=== PATIENT | female | born 1980 | race Two or more races ===

== ENCOUNTER 2020-09-20 11:40 | Outpatient (REF) | payer OTHER, SELFPAY | END 2020-09-20 11:41 | disposition home or self-care (01) | LOC: HO.LAB 11:40 | PROVIDERS: Visit Provider Internal Medicine | DX: Z20.822 Contact with and (suspected) exposure to COVID-19 (principal) | CPT/HCPCS: 36415; C9803; U0003; U0005 ==

== ENCOUNTER 2021-01-16 14:34 | Emergency (ER) | payer OTHER, SELFPAY ==
[2021-01-16 14:38] VITALS: BP 146/71; PULSE 96; RESP 18; TEMP 36.4; O2SAT 97; BMI 36.6
[2021-01-16 16:32] LABS: MANUAL DIFF FLAG NO
[2021-01-16 16:43] LABS: Basophils Percent Auto 0.5 % (0-2); Eosinophils Absolute Auto 0.3 X10*3/uL (0.0-0.4); Eosinophils Percent Auto 3.8 % (0-4); Hematocrit 45.2 % (37-47); Hemoglobin 14.9 g/dl (12.0-16.0); Imm Gran Abs Auto 0.04 X10*3/uL (0.00-0.03); Imm Gran Pct Auto 0.5 % (0.0-0.4); Lymphocytes Absolute Auto 2.7 X10*3/uL (1.2-4.9); Lymphocytes Percent Auto 32.6 % (20-40); Mean Corpuscular Hemoglobin 29.2 pg (27.0-33.0); Mean Corpuscular Volume 88.6 fL (80-98); Mean Platelet Volume 11.1 fL (9.4-12.3); Monocytes Absolute Auto 0.8 X10*3/uL (0.1-1.2); Monocytes Percent Auto 9.6 % (2-11); Neutrophils Absolute Auto 4.4 X10*3/uL (2.0-8.3); Platelet Count 273 X10*3/uL (160-400); Red Cell Distribution Width 13.7 % (11.0-16.0); White Blood Count 8.4 X10*3/uL (4.8-10.8)
--- NOTE | 2021-01-16 16:57 | ED_ITS ---
HPI - Nausea/Vomiting/Diarrhea General Chief complaint: Nausea/Vomiting/Diarrhea Stated complaint: DIARRHEA Time Seen by Provider: 01/16/21 16:57 Source: patient Mode of arrival: ambulatory Limitations: no limitations History of Present Illness HPI Narrative: patient been having diarrhea for last 2 days 4- 5 times today after having [place] food no fever no chills no blood in the stool no nausea or vomiting no other family member sick patient has not taken any medication at home Related Data Previous Rx's Medication Instructions Recorded loperamide [Imodium A-D] 2 mg PO Q6H PRN #7 tab 01/16/21 Allergies Allergy/AdvReac Type Severity Reaction Status Date / Time No Known Allergies Allergy Unverified 04/08/20 15:51 [No Known Allergies*] Review of Systems Review of Systems: Yes all other systems are reviewed and are negative PMFSH Past Medical History Medical History Depression History of renal calculi Surgical History H/O section Family History Family History Father Heart failure Myocardial infarct Mother Diabetes Social History Social History Alcohol intake: current Alcohol intake frequency: a few times a month Cigarette Packs Per Day: 1 Advance Directives: Yes Advance Directives Information Provided: No Advance Directives on File: No Patient : No Physical Exam Vital Signs: Vital Signs: Last Vital Signs Temp 97.6 F 01/16/21 14:38 Pulse 96 01/16/21 14:38 Resp 18 01/16/21 14:38 BP 146/71 H 01/16/21 14:38 Pulse Ox 97 01/16/21 14:38 Body Mass Index 36.6 Appearance: Alert. Oriented X3. No acute distress. Eyes: PERRLA, No Nystagmus ENT: Pharynx normal. Oral Mucosa moist Neck: Normal inspection. Neck supple. CVS: Normal heart rate and rhythm. Pulses normal. Respiratory: No respiratory distress. Equal air entry bilateral, no wheezing/rales/rhonchi Abdomen: Soft and nontender. Bowel sounds are present, no mass palpable, Skin: Skin warm and dry. Normal skin color. Normal skin turgor. Extremities: No lower extremity edema. Neuro: Oriented X 3. No motor deficit. MDM - Nausea/Vomiting/Diarrhea Lab Data Result diagrams: 01/16/21 16:15 01/16/21 16:15 Labs: Lab Results 01/16/21 01/16/21 Range/Units 16:15 16:15 WBC 8.4 (4.8-10.8) X10*3/uL RBC 5.10 (4.20-5.50) X10*6/uL Hgb 14.9 (12.0-16.0) g/dl Hct 45.2 (37-47) % MCV 88.6 (80-98) fL MCH 29.2 (27.0-33.0) pg MCHC 33.0 (31.0-35.0) g/dl RDW 13.7 (11.0-16.0) % Plt Count 273 (160-400) X10*3/uL MPV 11.1 (9.4-12.3) fL Immature Gran % (Auto) 0.5 H (0.0-0.4) % Neut % (Auto) 53.0 (45-73) % Lymph % (Auto) 32.6 (20-40) % Sebastian % (Auto) 9.6 (2-11) % Eos % (Auto) 3.8 (0-4) % Baso % (Auto) 0.5 (0-2) % Lymph # (Auto) 2.7 (1.2-4.9) X10*3/uL Sebastian # (Auto) 0.8 (0.1-1.2) X10*3/uL Eos # (Auto) 0.3 (0.0-0.4) X10*3/uL Baso # (Auto) 0.0 (0.0-0.2) X10*3/uL Abs Immat Gran (auto) 0.04 H (0.00-0.03) X10*3/uL Absolute Neuts (auto) 4.4 (2.0-8.3) X10*3/uL Absolute Nucleated RBC 0.000 (0.0-0.012) X10*3/uL Nucleated RBC % (auto) 0.0 (0.0-0.2) /100WBC Sodium 137 (135-145) mmol/L Potassium 4.5 (3.3-5.1) mmol/L Chloride 107 (96-108) mmol/L Carbon Dioxide 25 (22-29) mmol/L Anion Gap 10 L (12-20) BUN 11 (9-16) mg/dL Creatinine 0.72 (0.5-1.4) mg/dL Estim Creat Clear Calc 108.7 Estimated GFR > 60 Random Glucose 72 (60-115) mg/dL Calcium 9.4 (8.4-10.2) mg/dL Discharge Plan Discharge Clinical Impression: Diarrhea Qualifiers: Diarrhea type: functional diarrhea Qualified Code(s): K59.1 - Functional diarrhea Patient Disposition: Home, Self-Care Instructions: Acute Diarrhea (ED) Additional Instructions: drink plenty of fluids take Imodium as advised for increased diarrhea follow with PCP if not better Prescriptions: New loperamide [Imodium A-D] 2 mg tablet 2 mg PO Q6H PRN (Reason: loose stool) Qty: 7 RF: 0 Stand Alone Forms: Work/School Release Interventions: ED Discharge Assessment Last Done: 01/16/21 17:07 Discharge Date/Time: 01/16/21 17:09
[2021-01-16 16:59] LABS: Anion Gap 10 (12-20); Blood Urea Nitrogen 11 mg/dL (9-16); Calcium 9.4 mg/dL (8.4-10.2); Carbon Dioxide 25 mmol/L (22-29); Chloride 107 mmol/L (96-108); Creatinine Clr Calc Pharmacy 108.7; Estimated Glomerular Filt Rate > 60; Glucose Random 72 mg/dL (60-115); Potassium 4.5 mmol/L (3.3-5.1); Sodium 137 mmol/L (135-145)
[2021-01-16] MEDS: Loperamide HCl 2 MG CAPSULE PO (17:09)
== END 2021-01-16 17:09 | disposition home or self-care (01) ==
PROVIDERS: Emergency Provider Internal Medicine; PCP Internal Medicine
DX: K59.1 Functional diarrhea (principal)
CPT/HCPCS: 36415; 80048; 85025; 99283

== ENCOUNTER 2021-04-15 11:25 | Emergency (ER) | payer OTHER, SELFPAY ==
--- NOTE | ~2021-04-15 | XR_ITS ---
EXAMINATION: XR FOOT, RIGHT CLINICAL INFORMATION: Heel pain COMPARISON: None TECHNIQUE: AP, lateral, and oblique views of the right foot. FINDINGS: Bone alignment is normal. No fracture or dislocation is seen. Joint spaces are normal. There is a small plantar calcaneal spur. Soft tissues are otherwise unremarkable. XR/XR foot RT 2V IMPRESSION: Small plantar calcaneal spur.
[2021-04-15 11:30] VITALS: BP 132/80; PULSE 81; RESP 20; TEMP 35.9; O2SAT 96; BMI 38.0
--- NOTE | 2021-04-15 12:11 | ED_ITS ---
HPI - Extremity Problem General Chief complaint: Extremity Problem Stated complaint: R FOOT PAIN Time Seen by Provider: 04/15/21 12:11 Source: patient Mode of arrival: ambulatory Limitations: no limitations History of Present Illness HPI Narrative: 40-year-old female presents with 2 days of right heel pain. The pain is sharp, and is in the plantar surface of her right heel. It is worse when she wakes up in the morning. 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 MD Complaint: extremity pain Onset (ago): day(s) (2) Pain Consistency: constant Location: right Severity scale (1-10): 8 Quality: burning and aching Radiation: none Relieving factors: nothing Exacerbating factors: walking Related Data Previous Rx's Medication Instructions Recorded loperamide 2 mg tablet (Imodium 2 mg PO Q6H PRN #7 tab 01/16/21 A-D) prednisone 20 mg tablet 40 mg PO DAILY 5 Days #10 tab 04/15/21 Allergies Allergy/AdvReac Type Severity Reaction Status Date / Time No Known Allergies Allergy Unverified 02/10/21 14:37 [No Known Allergies*] Review of Systems Constitutional: Constitutional: Denies body ache(s), Denies chills, Denies fatigue, Denies fever(s), Denies headache(s), Denies malaise and Denies weakness Eyes: Eyes: Denies diplopia ENT: Denies vertigo, Denies dizziness, Denies otalgia, Denies headache(s), Denies mouth pain, Denies post nasal drip, Denies sinus pain, Denies sinus pressure, Denies sore throat and Denies throat swelling Cardiovascular: Cardiovascular: Denies chest pain, Denies syncope, Denies leg edema, Denies lightheadedness, Denies Loss of Consciousness, Denies palpitations and Denies dyspnea Respiratory: Respiratory: Denies chest congestion, Denies cough and Denies dyspnea Gastrointestinal: Gastrointestinal: Reports abdominal pain, Denies hematochezia, Denies constipation, Denies diarrhea and Denies vomiting Musculoskeletal: Comments: Right heel pain Integumentary/Breasts: Skin/Breast: Denies erythema Neurologic: Denies confusion, Denies vertigo, Denies dizziness, Denies syncope, Denies headache(s) and Denies weakness Psychiatric: Psychiatric: Denies anxiety, Denies confusion and Denies depress ion Endocrine: Endocrine: Denies fatigue and Denies palpitations Allergic/Immunologic: Allergic/Immunologic: Denies throat swelling PMFSH Past Medical History Medical History Depression History of renal calculi Surgical History H/O section Family History Family History Father Heart failure Myocardial infarct Mother Diabetes Social History Social History (System 02/10/21 @ 14:37 by Tameka Almonte) Alcohol intake: current Alcohol intake frequency: a few times a month Cigarette Packs Per Day: 1 Advance Directives: No Advance Directives Information Provided: No Patient : No Physical Exam Vital Signs: Vital Signs: Last Vital Signs Temp 96.6 F L 04/15/21 11:30 Pulse 81 04/15/21 11:30 Resp 20 04/15/21 11:30 BP 132/80 04/15/21 11:30 Pulse Ox 96 04/15/21 11:30 Body Mass Index 38.0 Const: General: No confusion Nutritional Appearance: well nourished Orientation/consciousness: No confusion Limitations: no limitations HENMT: Head: Yes normal to inspection, Yes normocephalic and Yes atraumatic Ears: hearing grossly normal bilaterally, external ears normal, TM's normal bilaterally and EAC's normal General nose exam: Normal external nose present Face and sinus: Yes normal facial exam and Yes sinuses nontender Mouth: Normal oral and palatal mucosa present Throat: Yes posterior oropharynx normal Eyes: Conjunctivae: conjunctivae normal Pupils: Equal, round and reactive pupils present EOM: EOMs intact bilaterally Neck: Neck: Yes full ROM, Yes no lymphadenopathy and Yes supple Resp: Effort & Inspection: normal respiratory effort and able to speak in complete sentences Auscultation: clear to auscultation bilaterally, no crackles, no rales, no rhonchi and no wheezes Cardio: Rate: regular rate Rhythm: regular rhythm Heart sounds: S1 normal heart sound present and S2 normal heart sound present GI: Inspection: Yes normal to inspection Palpation (GI): Soft to palpation, nontender, no guarding and not rigid Percussion: Yes normal to percussion Auscultation: normal bowel sounds Skin: General skin exam: no rashes or lesions noted Neuro: General: No confusion Cranial nerves: Yes Equal, round and reactive pupils present Extrem: Right lower extremity: normal to inspection, full ROM, normal capillary refill and foot Details: normal capillary refill, normal to inspection, tenderness Location: of the calcaneus, toes with normal ROM, no edema and vascular exam Details: dorsalis pedis pulse present, posterior tibial pulse present and normal capillary refill; Negative for no unusual warmth, no ecchymosis and no crepitus; No no cyanosis, no edema and joint enlargement noted Psych: Appearance: grossly normal Affect: normal affect Attitude: cooperative Thought process: Normal thought process present Course Course Course Narrative: 40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 X-ray shows a plantar calcaneal spur. Patient has intact lower extremity pulses, s ensation, motor strength, and range of motion. Patient is tender over plantar surface of her right heel. This looks like plantar fasciitis. Prescribed a short course of prednisone, told patient to sleep with an ortho boot to keep foot in flexion overnight, counseled get a new shoes, heel gel inserts , call PCP for for all to physical therapy Discharge Plan Discharge Clinical Impression: Plantar fasciitis of right foot Patient Disposition: Home, Self-Care Instructions: Plantar Fasciitis (ED), Plantar Fasciitis Exercises (ED) Additional Instructions: Please call your primary care provider for follow-up appointment. They can refer you to physical therapy if you have continuing right heel pain. Please buy new issues with a heel cushion, and by heel gel inserts 3 issues. Please stay a few feet for the next 3 days, take the prednisone as prescribed. Please sleep with Ortho boot so that your heel is flexed, that should help with pain in the morning. Prescriptions: New prednisone 20 mg tablet 40 mg PO DAILY 5 Days Qty: 10 RF: 0 No Action loperamide [Imodium A-D] 2 mg tablet 2 mg PO Q6H PRN (Reason: loose stool) Qty: 7 RF: 0 Stand Alone Forms: Work/School Release Interventions: ED Discharge Assessment Last Done: 04/15/21 12:34 Discharge Date/Time: 04/15/21 12:34
--- NOTE | 2021-04-15 21:17 | ED.EXTPRO ---
HPI - Extremity Problem General Chief complaint: Extremity Problem Stated complaint: R FOOT PAIN Time Seen by Provider: 04/15/21 12:11 Source: patient Mode of arrival: ambulatory Limitations: no limitations History of Present Illness HPI Narrative: Right heel pain for the last week, worse in the morning Pain Consistency: constant Location: right Severity scale (1-10): 8 Quality: burning and aching Relieving factors: nothing Exacerbating factors: walking Related Data Previous Rx's Medication Instructions Recorded loperamide 2 mg tablet (Imodium 2 mg PO Q6H PRN #7 tab 01/16/21 A-D) prednisone 20 mg tablet 40 mg PO DAILY 5 Days #10 tab 04/15/21 Allergies Allergy/AdvReac Type Severity Reaction Status Date / Time No Known Allergies Allergy Unverified 02/10/21 14:37 [No Known Allergies*] Review of Systems Review of Systems: Constitutional : No Weight loss, No Fever, No Chills, No Night Sweats,No Fatigue, No Malaise ENT/Mouth : No Hearing loss, No Ear Pain, No Nasal Congestion, NoSinus Pain, No Hoarseness, No sore throat, No Rhinorrhea, NoSwallowing Difficulty Eyes: No Eye Pain, No Swelling, No Redness, No Foreign Body, NoDischarge, No Vision Changes Cardiovascular : No Chest Pain, No SOB, No Dyspnea on Exertion, NoOrthopnea, No Edema, No Palpitations Respiratory : No Cough, No Sputum, No Wheezing, No Smoke Exposure, No Dyspnea Gastrointestinal : No Nausea, No Vomiting, No Diarrhea, NoConstipation, No abdominal Pain, No Hematochezia, No Melena Genitourinary : no irregular bleeding, No Dysuria, No UrinaryFrequency, No Hematuria, No Urinary Incontinence, No Urgency, No FlankPain, No Urinary Flow Changes, No Hesitancy Musculoskeletal :heel pain Skin : No Skin Lesions, No rash Neuro : No Weakness, No Numbness, No Paresthesias, No Loss ofConsciousness, No Dizziness, No Headache PMFSH Past Medical History Medical History Depression History of renal calculi Surgical History H/O section Family History Family History Father Heart failure Myocardial infarct Mother Diabetes Social History Social History (System 02/10/21 @ 14:37 by Tameka Almonte) Alcohol intake: current Alcohol intake frequency: a few times a month Cigarette Packs Per Day: 1 Advance Directives: No Advance Directives Information Provided: No Patient : No Physical Exam Vital Signs: Vital Signs: Last Vital Signs Temp 96.6 F L 04/15/21 11:30 Pulse 81 04/15/21 11:30 Resp 20 04/15/21 11:30 BP 132/80 04/15/21 11:30 Pulse Ox 96 04/15/21 11:30 Body Mass Index 38.0 Const: General: cooperative, no acute distress, well developed, alert and awake Nutritional Appearance: well nourished Orientation/consciousness: patient oriented x3 Limitations: no limitations Eyes: Conjunctivae: conjunctivae normal Pupils: Equal, round and reactive pupils present EOM: EOMs intact bilaterally Neck: Neck: Yes full ROM, Yes no lymphadenopathy and Yes supple Resp: Effort & Inspection: normal respiratory effort and able to speak in complete sentences Auscultation: clear to auscultation bilaterally, no crackles, no rales, no rhonchi and no wheezes Cardio: Rate: regular rate Rhythm: regular rhythm Heart sounds: S1 normal heart sound present and S2 normal heart sound present GI: Inspection: Yes normal to inspection Palpation (GI): Soft to palpation, nontender, no guarding and not rigid Percussion: Yes normal to percussion Auscultation: normal bowel sounds Skin: General skin exam: no rashes or lesions noted Neuro: General: patient oriented x3, tone normal and moves all extremities Cranial nerves: Yes Equal, round and reactive pupils present Extrem: Left lower extremity: full ROM, normal capillary refill and foot Details: normal capillary refill, tenderness Location: of the calcaneus and toes with normal ROM; Negative for no unusual warmth, edema noted and no abrasions; No no edema Psych: Appearance: grossly normal Affect: normal affect Attitude: cooperative Thought process: Normal thought process present Course Course Course Narrative: X-ray negative for acute fracture, patient has symptoms consistent with plantar fasciitis. The walking boot to keep foot inflection for sleeping, gave healed gel recommendation, prescribed prednisone Discharge Plan Discharge Clinical Impression: Plantar fasciitis of right foot Patient Disposition: Home, Self-Care Instructions: Plantar Fasciitis (ED), Plantar Fasciitis Exercises (ED) Additional Instructions: Please call your primary care provider for follow-up appointment. They can refer you to physical therapy if you have continuing right heel pain. Please buy new issues with a heel cushion, and by heel gel inserts 3 issues. Please stay a few feet for the next 3 days, take the prednisone as prescribed. Please sleep with Ortho boot so that your heel is flexed, that should help with pain in the morning. Prescriptions: New prednisone 20 mg tablet 40 mg PO DAILY 5 Days Qty: 10 RF: 0 No Action loperamide [Imodium A-D] 2 mg tablet 2 mg PO Q6H PRN (Reason: loose stool) Qty: 7 RF: 0 Stand Alone Forms: Work/School Release Interventions: ED Discharge Assessment Last Done: 04/15/21 12:34 Discharge Date/Time: 04/15/21 12:34
== END 2021-04-15 12:34 | disposition home or self-care (01) ==
PROVIDERS: Emergency Provider Emergency Medicine; PCP Internal Medicine
DX: M72.2 Plantar fascial fibromatosis (principal); Z79.899 Other long term (current) drug therapy
CPT/HCPCS: 73620; 99283; 99284

== ENCOUNTER 2021-05-19 13:55 | Outpatient (REF) | payer OTHER, SELFPAY ==
[2021-05-19 14:13] LABS: MANUAL DIFF FLAG NO
[2021-05-19 14:17] LABS: Basophils Percent Auto 0.3 % (0-2); Eosinophils Absolute Auto 0.3 X10*3/uL (0.0-0.4); Hemoglobin 14.6 g/dl (12.0-16.0); Imm Gran Abs Auto 0.03 X10*3/uL (0.00-0.03); Imm Gran Pct Auto 0.3 % (0.0-0.4); Lymphocytes Absolute Auto 2.2 X10*3/uL (1.2-4.9); Lymphocytes Percent Auto 25.1 % (20-40); Mean Corpuscular HGB Conc 33.2 g/dl (31.0-35.0); Mean Corpuscular Hemoglobin 29.6 pg (27.0-33.0); Mean Corpuscular Volume 89.2 fL (80-98); Mean Platelet Volume 10.3 fL (9.4-12.3); Monocytes Absolute Auto 0.6 X10*3/uL (0.1-1.2); Monocytes Percent Auto 6.6 % (2-11); Neutrophils Absolute Auto 5.5 X10*3/uL (2.0-8.3); Neutrophils Percent Auto 63.7 % (45-73); Platelet Count 266 X10*3/uL (160-400); Red Blood Count 4.93 X10*6/uL (4.20-5.50); White Blood Count 8.6 X10*3/uL (4.8-10.8)
[2021-05-19 14:27] LABS: Estimated Average Glucose 105 mg/dL; Hemoglobin A1C 125.9019 umol/L; Hemoglobin A1c % 5.3 %
[2021-05-19 14:52] LABS: Alanine Aminotransferase 13 U/L (0-31); Albumin Level 3.9 g/dL (3.5-5.0); Alkaline Phosphatase 83 U/L (39-117); Anion Gap 14 (12-20); Aspartate Amino Transferase 15 U/L (5-31); Bilirubin Total 0.3 mg/dL (0.0-1.0); Blood Urea Nitrogen 8 mg/dL (9-16); Carbon Dioxide 23 mmol/L (22-29); Chloride 104 mmol/L (96-108); Cholesterol 233 mg/dL; Estimated Glomerular Filt Rate > 60; Glucose Random 105 mg/dL (60-115); HDL Cholesterol 56 mg/dL; LDL Cholesterol Calculated 150 mg/dl; Potassium 4.5 mmol/L (3.3-5.1); Sodium 136 mmol/L (135-145); Triglycerides 138 mg/dL
[2021-05-19 15:03] LABS: Free T4 (Free Thyroxine) 0.86 ng/dL (0.71-1.85); Thyroid Stimulating Hormone 1.67 uIU/mL (0.32-4.0); Vitamin D 25-OH Total 13.8 ng/mL (>30)
[2021-05-19 15:20] LABS: Folate 10.1 ng/mL (> or = 4.0); Vitamin B12 333 pg/mL (200-900)
[2021-05-19 15:21] LABS: Appearance Urine HAZY; Color Urine YELLOW; Glucose Urine UA NEG (NEG); Leukocyte Esterase Urine NEG (NEG); Nitrite Urine NEG (NEG); PH 5.5 (5.0-8.0); Specific Gravity - Urine 1.025 (1.005-1.025); Urine Blood 1+ (NEG); Urine Ketones NEG (NEG); Urine Protein NEG (NEG-TRACE)
[2021-05-19 15:34] LABS: Bacteria Urine TRACE /LPF; RBC Urine 0-2 /HPF (0); Squamous Epithelial Cell Urine 1+ /LPF; WBC Urine 0 /HPF (0-4)
== END 2021-05-19 13:56 | disposition home or self-care (01) ==
LOC: HO.LAB 13:55
PROVIDERS: PCP Internal Medicine; Visit Provider Internal Medicine
DX: E66.01 Morbid (severe) obesity due to excess calories (principal); Z68.41 Body mass index [BMI] 40.0-44.9, adult; E78.00 Pure hypercholesterolemia, unspecified
CPT/HCPCS: 36415; 80053; 80061; 81001; 82306; 82607; 82746; 83036; 84439; 84443; 85025; 86900; 86901

== ENCOUNTER 2021-05-23 15:46 | Outpatient (REF) | payer OTHER, SELFPAY ==
[2021-05-24 03:55] LABS: CT PCR NOT DETECTED (Not Detect.); NG PCR NOT DETECTED (Not Detect.)
[2021-05-24 11:12] LABS: BV Int Neg Control Negative (Negative); BV Int Pos Control Positive (Positive)
[2021-05-26 02:32] LABS: HPV mRNA E6/E7 rflx Not Detected (Not Detected)
== END 2021-05-23 15:47 | disposition home or self-care (01) ==
LOC: HO.LAB 15:46
PROVIDERS: Visit Provider Internal Medicine
DX: K21.9 Gastro-esophageal reflux disease without esophagitis (principal); R31.9 Hematuria, unspecified; Z12.4 Encounter for screening for malignant neoplasm of cervix
CPT/HCPCS: 87480; 87491; 87510; 87591; 87624; 87660; 88142

== ENCOUNTER 2021-07-20 10:26 | Outpatient (REF) | payer OTHER, SELFPAY | END 2021-07-20 10:27 | disposition home or self-care (01) | LOC: HO.LAB 10:26 | PROVIDERS: Visit Provider Internal Medicine | DX: Z20.822 Contact with and (suspected) exposure to COVID-19 (principal) | CPT/HCPCS: C9803; U0003; U0005 ==

== ENCOUNTER 2021-11-30 09:37 | Emergency (ER) | payer OTHER, SELFPAY ==
[2021-11-30 10:08] VITALS: BP 120/73; PULSE 100; RESP 16; TEMP 36.6; O2SAT 98; BMI 42.0
[2021-11-30 10:21] LABS: Appearance Urine HAZY; Color Urine YELLOW; Glucose Urine UA NEG (NEG); Leukocyte Esterase Urine 2+ (NEG); Nitrite Urine NEG (NEG); PH 6.5 (5.0-8.0); Specific Gravity - Urine 1.025 (1.005-1.025); UACC Culture Trigger YES; Urine Blood 1+ (NEG); Urine Ketones NEG (NEG); Urine Protein NEG (NEG-TRACE)
[2021-11-30 10:38] LABS: Bacteria Urine 1+ /LPF; Squamous Epithelial Cell Urine 1+ /LPF
--- NOTE | 2021-11-30 11:30 | ED_ITS ---
HPI - Skin/Abscess/Foreign Bdy General Chief complaint: Skin/Abscess/Foreign Body Stated complaint: lockjaw pain into l ear Time Seen by Provider: 11/30/21 11:10 Source: patient Mode of arrival: ambulatory Limitations: no limitations History of Present Illness HPI narrative: 41-year-old female presenting to the ED with complaints of insect bite to her left eyebrow that occurred yesterday and she was able to excrete purulent drainage from the discharge although since then she has been having left facial pain/jaw pain/ear pain and she reports it is related to this insect bite possible infection. She also reports she has been having some dysuria over the past few days believe she might have UTI. Denies any fevers, chills, trouble swallowing or breathing, chest pain or shortness of breath, abdominal pain, back pain, abnormal vaginal discharge, thoughts of STDs or any other symptoms complaints or concerns at this time. Patient denies a history of MRSA. MD complaint: insect bite/sting Onset (ago): day(s) (2) Location: face (left eyebrow) Severity: mild Quality: aching and constant Pain Consistency: constant Relieving factors: none Exacerbating factors: other (When she opens her jaw and palpate her in left ear) Context: witnessed insect bite Associated symptoms: other (see above) Treatments prior to arrival: attempted to drain pus at home Related Data Previous Rx's Medication Instructions Recorded clotrimazole 1 % topical cream 1 appl TOPICAL BID 28 Days #45 g 05/23/21 miconazole nitrate 2 % topical 1 appl TOPICAL BID #71 g 05/23/21 powder (Zeasorb AF) metronidazole 500 mg tablet 500 mg PO BID 7 Days #14 tab 05/24/21 cephalexin 500 mg capsule 500 mg PO Q6H 10 Days #40 cap 11/30/21 doxycycline hyclate 100 mg tablet 100 mg PO BID 10 Days #20 tab 11/30/21 Allergies Allergy/AdvReac Type Severity Reaction Status Date / Time No Known Allergies Allergy Verified 08/31/21 09:42 [No Known Allergies*] Review of Systems Review of Systems: Constitutional : Denies history of same, Denies any other sites involved, Denies IV drug use, Denies history of MRSA, Denies swollen glands, Denies injury, Denies Fever, Denies Chills, + Sig Pain, Denies Systemic symptoms Cardiovascular : No Chest Pain, No SOB Respiratory : No Dyspnea Gastrointestinal : No abdominal pain, + dysuria Musculoskeletal : No Joint Swelling Skin : + Insect Bite c mild surrouding erythema, No abscess/fluctuance, No skin laceration, No Foreign bodies, No spreading rash, Denies bites, Denies discharge, Neuro : No Weakness, No Numbness/tingling Psych : No SI/HI/thoughts of self injury Yes all other systems are reviewed and are negative [facility] Past Medical History Attestation statement: The following information was validated with the patient. Medical History Depression History of renal calculi Surgical History H/O section Family History Family History Father Heart failure Myocardial infarct Mother Diabetes Maternal Uncle Alcohol abuse Social History Social History Housing: House Alcohol intake: current Alcohol intake frequency: a few times a month Patient Tobacco Use Status: Current everyday Tobacco user Tobacco use type: Cigarette Cigarette Packs Per Day: 1 e-Cigarette/Vaping Use: Never Used Second Hand Smoke Exposure: No Advance Directives: No Advance Directives Information Provided: No Current occupational status: employed Physical Exam Vital Signs: Vital Signs: Last Vital Signs Temp 98 F 11/30/21 10:08 Pulse 100 11/30/21 10:08 Resp 16 11/30/21 10:08 BP 120/73 11/30/21 10:08 Pulse Ox 98 11/30/21 10:08 BMI result Body Mass Index 42.0 vital signs have been reviewed as normal and appeared to be correct. Blood pressure normal. Heart rate normal. Respiration rate normal. Temperature normal. Oxygen saturation normal. Appearance: Alert. Oriented X3. No acute distress. Head: Normal external exam. Normocephalic. Atraumatic. Eyes: PERRLA. EOMI. Conjunctiva and sclera normal. Eyelids normal. To left eyebrow patient has a small insect bite with mild surrounding erythema no fluctuance/induration/streaking or foreign bodies noted ENT: EAC normal. TM's Normal. Pharynx normal. Uvula midline. Moist mucous membranes. No lesions/ulcerations or masses noted on the tongue. Normal voice. No trismus noted. No drooling noted. No muffled voice noted. Patient is able to open and close her mouth although reports pain to the left side of her jaw. Not consistent with locked jaw. No rashes are noted although patient does have poor dentition throughout with multiple old dental fractures and dental caries although no evidence of dental/pharyngeal/gingival/tonsillar abscess. Neck: Normal inspection. Neck supple. FROM. No adenopathy. Thyroid Normal. No meningeal signs. CVS: Normal heart rate and rhythm. Heart sound normal. Pulses normal throughout. No murmurs/rales/gallops. Respiratory: No respiratory distress. Painless inspiration. Breath sounds normal. No wheezes/rales/rhonchi noted. Chest nontender. No accessory muscle usage noted or decreased air movement noted. No signs of trauma. Abdomen: Soft and nontender. Bowel sounds normal in all 4 quadrants. No distention noted. No organomegaly noted. No visible injury noted. Back: Full range of motion noted. Skin: Skin warm and dry. Normal skin color. Normal skin turgor. No rashes/lesions/lacerations noted. Extremities: Extremities exhibit normal range of motion and nontender. Neuro: Oriented X 3. No motor deficit. No sensory deficit. Reflexes normal. Normal steady gait. No focal neuro deficits noted. CN's II-XII intact bilaterally? Vascular: + radial pulses/+ 2 distal pedal pulses/+2 dorsalis pedis b/l. Normal cap refill. No cyanosis noted to upper extremity nails and lower extremity toes nails. Course Course Course Narrative: Patient with cellulitis to insect bite to left eyebrow no streaking/induration/fluctuance or foreign bodies noted. Otherwise tympanic membranes are within normal limits. External ear canals within normal limits. She does have poor dentition throughout. Does not have locked jaw she is able to open her mouth completely. Not consistent with pharyngeal/dental/gingival abscess. Lungs are clear to auscultation. There are no masses to the neck. Neck is soft nontender and supple with full range of motion no meningeal sign noted. Abdomen is soft and nontender. No CVA tenderness is noted. Therefore at this time will DC home with antibiotics for cellulitis/UTI instructions return if any new or worsening symptoms follow up with primary care provider. Patient understands agrees with this plan. MDM - Skin/Abscess/Foreign Bdy Medical Records Attestation: I reviewed the patient's medical records. Lab Data Attestation: I reviewed the patient's lab results. Labs: Lab Results 11/30/21 Range/Units 10:16 Urine Color YELLOW Urine Appearance HAZY Urine pH 6.5 (5.0-8.0) Ur Specific [place] 1.025 (1.005-1.025) Urine Protein NEG (NEG-TRACE) MG/DL Urine Glucose (UA) NEG (NEG) MG/DL Urine Ketones NEG (NEG) MG/DL Urine Blood 1+ H (NEG) Urine Nitrite NEG (NEG) Ur Leukocyte Esterase 2+ H (NEG) Urine RBC 1-4 (0) /HPF Urine WBC 5-9 H (0-4) /HPF Ur Squamous Epith Cells 1+ /LPF Urine Bacteria 1+ /LPF Discharge Plan Discharge Clinical Impression: Insect bite, Cellulitis of eyebrow, UTI (urinary tract infection) Patient Disposition: Home, Self-Care Instructions: Urinary Tract Infection in Women (DC), Cellulitis (ED) Prescriptions: New doxycycline hyclate 100 mg tablet 100 mg PO BID 10 Days Qty: 20 0RF cephalexin 500 mg capsule 500 mg PO Q6H 10 Days Qty: 40 0RF No Action metronidazole 500 mg tablet 500 mg PO BID 7 Days Qty: 14 0RF clotrimazole 1 % cream 1 appl topical BID 28 Days Qty: 45 1RF Zeasorb AF 2 % powder 1 appl topical BID Qty: 71 1RF Referrals: Po,Raven Robles MD [Primary Care Provider] - 2 days Stand Alone Forms: Work/School Release
[2021-11-30 11:37] LABS: UPreg QC Valid YES; Urine Pregnancy NEGATIVE (NEGATIVE)
== END 2021-11-30 11:50 | disposition home or self-care (01) ==
PROVIDERS: Physician Assistant Medical; Emergency Provider Emergency Medicine; PCP Internal Medicine
DX: H00.036 Abscess of eyelid left eye, unspecified eyelid (principal); N39.0 Urinary tract infection, site not specified; H57.12 Ocular pain, left eye; F17.210 Nicotine dependence, cigarettes, uncomplicated; Z71.6 Tobacco abuse counseling; Z79.899 Other long term (current) drug therapy
CPT/HCPCS: 81001; 81025; 87086; 99283

== ENCOUNTER 2021-12-02 14:45 | Outpatient (REF) | payer OTHER, SELFPAY ==
[2021-12-02 15:00] LABS: MANUAL DIFF FLAG NO
[2021-12-02 15:12] LABS: Basophils Percent Auto 0.6 % (0-2); Eosinophils Absolute Auto 0.2 X10*3/uL (0.0-0.4); Eosinophils Percent Auto 3.4 % (0-4); Hematocrit 40.8 % (37.0-47.0); Hemoglobin 13.3 g/dl (12.0-16.0); Imm Gran Abs Auto 0.04 X10*3/uL (0.00-0.03); Imm Gran Pct Auto 0.6 % (0.0-0.4); Lymphocytes Absolute Auto 2.2 X10*3/uL (1.2-4.9); Lymphocytes Percent Auto 31.2 % (20-40); Mean Corpuscular HGB Conc 32.6 g/dl (31.0-35.0); Mean Corpuscular Hemoglobin 28.7 pg (27.0-33.0); Mean Corpuscular Volume 87.9 fL (80.0-98.0); Mean Platelet Volume 10.5 fL (9.4-12.3); Monocytes Absolute Auto 0.8 X10*3/uL (0.1-1.2); Monocytes Percent Auto 11.5 % (2-11); Neutrophils Absolute Auto 3.7 x10*3/uL (2.0-8.3); Neutrophils Percent Auto 52.7 % (45-73); Platelet Count 303 X10*3/uL (160-400); Red Blood Count 4.64 X10*6/uL (4.20-5.50); Red Cell Distribution Width 13.4 % (11.0-16.0)
[2021-12-02 15:34] LABS: Alanine Aminotransferase 14 U/L (0-31); Albumin Level 3.6 g/dL (3.5-5.0); Alkaline Phosphatase 85 U/L (39-117); Anion Gap 11 (12-20); Aspartate Amino Transferase 13 U/L (5-31); Bilirubin Total 0.3 mg/dL (0.0-1.0); Blood Urea Nitrogen 9 mg/dL (9-16); Calcium 9.5 mg/dL (8.4-10.2); Carbon Dioxide 24 mmol/L (22-29); Chloride 105 mmol/L (96-108); Estimated Glomerular Filt Rate > 60; Glucose Random 121 mg/dL (60-115); Potassium 4.1 mmol/L (3.3-5.1); Sodium 136 mmol/L (135-145); Total Protein 6.8 g/dL (6.5-8.0)
[2021-12-02 15:48] LABS: Erythrocyte Sedimentation Rate 18 MM/HR (0-20)
[2021-12-02 16:04] LABS: Urine Cytology See Pathology rpt
[2021-12-02 16:08] LABS: Appearance Urine HAZY; Color Urine YELLOW; Glucose Urine UA NEG (NEG); Leukocyte Esterase Urine NEG (NEG); Nitrite Urine NEG (NEG); PH 5.5 (5.0-8.0); Specific Gravity - Urine >= 1.030 (1.005-1.025); Urine Blood 3+ (NEG); Urine Ketones 5 MG/DL (NEG); Urine Protein TRACE MG/DL (NEG-TRACE)
[2021-12-02 16:15] LABS: Calcium Oxalate Crystals Urine 3+ /LPF; Squamous Epithelial Cell Urine 3+ /LPF; WBC Urine 0 /HPF (0-4)
== END 2021-12-02 14:46 | disposition home or self-care (01) ==
LOC: HO.LAB 14:45
PROVIDERS: PCP Internal Medicine; Visit Provider Internal Medicine
DX: L03.211 Cellulitis of face (principal); R31.9 Hematuria, unspecified; N39.0 Urinary tract infection, site not specified
CPT/HCPCS: 36415; 80053; 81001; 85025; 85652; 88112

== ENCOUNTER 2021-12-06 11:15 | Outpatient (REF) | payer OTHER, SELFPAY ==
--- NOTE | ~2021-12-06 | XR_ITS ---
EXAMINATION: XR FINGER, RIGHT CLINICAL INFORMATION: Soft tissue disorder COMPARISON: None TECHNIQUE: Three views of the right second. FINDINGS: Bone alignment is normal. No fracture or dislocation is seen. The joint spaces are normal. There is soft tissue swelling adjacent to the proximal phalanx. XR/XR finger RT min 2V IMPRESSION: Soft tissue swelling otherwise unremarkable exam.
== END 2021-12-06 11:16 | disposition home or self-care (01) ==
LOC: HO.XRAY 11:15
PROVIDERS: PCP Internal Medicine; Visit Provider Internal Medicine
DX: M79.89 Other specified soft tissue disorders (principal)
CPT/HCPCS: 73140

== ENCOUNTER 2021-12-26 12:06 | Emergency (ER) | payer OTHER, SELFPAY ==
--- NOTE | ~2021-12-26 | XR_ITS ---
EXAMINATION: XR CHEST CLINICAL INFORMATION: Cough and shortness of breath COMPARISON: None TECHNIQUE: 2 views of the chest were obtained. FINDINGS: No significant abnormality is noted involving the heart, lungs, mediastinum, bony thorax or soft tissues. XR/XR chest 2V IMPRESSION: Unremarkable examination.
[2021-12-26 12:18] VITALS: BP 153/76; PULSE 80; RESP 18; TEMP 36.6; O2SAT 98; BMI 40.2
[2021-12-26 12:47] LABS: COVID-19 Test Negative (Negative); IDNOW Serial# 9DB6401D; Influenza A Negative (Negative); Influenza B2 Negative (Negative)
[2021-12-26] MEDS: Albuterol Sulfate (0.083%) 2.5 MG/3 ML VIAL.NEB 10 MG INHALE (14:21)
[2021-12-26 14:23] VITALS: PULSE 72; RESP 18; O2SAT 98
--- NOTE | 2021-12-26 14:34 | ED_ITS ---
HPI - Asthma General Chief Complaint: General Medical Stated Complaint: cough diff breathing fever Time Seen by Provider: 12/26/21 13:28 Source: patient Mode of arrival: ambulatory Limitations: no limitations Related Data Previous Rx's Medication Instructions Recorded cephalexin 500 mg capsule 500 mg PO Q6H 10 Days #40 cap 11/30/21 doxycycline hyclate 100 mg tablet 100 mg PO BID 10 Days #20 tab 11/30/21 Allergies Allergy/AdvReac Type Severity Reaction Status Date / Time No Known Allergies Allergy Verified 12/06/21 10:42 [No Known Allergies*] COUNT INCLUDES THE [facility] Past Medical History Medical History (Updated 12/26/21 @ 14:35 by RAISA Kowalski) Depression History of renal calculi Surgical History H/O section Family History Family History Father Heart failure Myocardial infarct Mother Diabetes Maternal Uncle Alcohol abuse Social History Social History Housing: House Alcohol intake: current Alcohol intake frequency: a few times a month Patient Tobacco Use Status: Current everyday Tobacco user Tobacco use type: Cigarette Cigarette Packs Per Day: 1 e-Cigarette/Vaping Use: Never Used Second Hand Smoke Exposure: No Advance Directives: No Advance Directives Information Provided: Yes Current occupational status: employed Cognitive needs: No Hearing needs: No Vision needs: No Physical Exam Vital Signs: Vital Signs: Last Vital Signs Temp 97.8 F 12/26/21 12:18 Pulse 72 12/26/21 14:23 Resp 18 12/26/21 14:23 BP 153/76 H 12/26/21 12:18 Pulse Ox 98 12/26/21 12:18 BMI result Body Mass Index 40.2 MDM - Asthma Lab Data Labs: Lab Results 12/26/21 12/26/21 Range/Units 12:21 12:21 COVID-19 ([facility]) Negative (Negative) COVID-19 Clin Com See Note Influenza Type A ([facility]OLANN) Negative (Negative) Influenza Type B ([facility]OLANN) Negative (Negative) Influenza A & B Note See Note Discharge Plan Discharge Prescriptions: No Action doxycycline hyclate 100 mg tablet 100 mg PO BID 10 Days Qty: 20 0RF cephalexin 500 mg capsule 500 mg PO Q6H 10 Days Qty: 40 0RF
--- NOTE | 2021-12-26 14:41 | ED_ITS ---
HPI - URI/Sore Throat General Chief Complaint: General Medical Stated Complaint: cough diff breathing fever Time Seen by Provider: 12/26/21 13:28 Source: patient Mode of arrival: ambulatory Limitations: no limitations History of Present Illness HPI Narrative: 41-year-old female with a past medical history of hypertension, hypercholesterolemia, COVID in the past, GERD who smokes cigarettes daily presenting to the ED with complaints of having flu like symptoms for the past week which include fevers up to 103 over the past 3 nights with associated productive /dry cough with yellow colored sputum, wheezing/shortness of breath and chest tightness. Reports that she has had a negative at home COVID test. Reports that she is vaccinated. She reports she is taking Motrin Tylenol and cough medicine. She reports initially she was having some nausea and vomiting although she has not vomited and has not had any nausea in the past 2-3 days. She is able to eat and drink normally at this time. She denies any dizziness, headaches, neck pain / stiffness, dyspnea on exertion, orthopnea, palpitations, paresthesias, chest pain, back pain, abdominal pain, flank pain, dysuria, hematuria, abnormal vaginal discharge, lower extremity edema or calf tenderness, recent travel or sick contacts, history of asthma or any other symptoms complaints or concerns at this time. 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: fever and cough Onset (ago): week(s) (1) Consistency: constant Severity: moderate Description of mucous: watery and yellow Able to tolerate fluids by mouth: Yes Exacerbating factors: deep breaths Relieving factors: nothing Associated symptoms: fever, chills, myalgias, rhinorrhea, nasal congestion, cough, shortness of breath, nausea and vomiting Treatments prior to arrival: acetaminophen, ibuprofen and cold medicine Related Data Previous Rx's Medication Instructions Recorded cephalexin 500 mg capsule 500 mg PO Q6H 10 Days #40 cap 11/30/21 doxycycline hyclate 100 mg tablet 100 mg PO BID 10 Days #20 tab 11/30/21 amoxicillin 875 mg-potassium 1 tab PO BID 10 Days #20 tab 12/26/21 clavulanate 125 mg tablet codeine 10 mg-guaifenesin 100 mg/5 5 ml PO Q6H PRN #120 ml 12/26/21 mL oral liquid (Guaifenesin AC) prednisone 20 mg tablet 40 mg PO DAILY 5 Days #10 tab 12/26/21 Allergies Allergy/AdvReac Type Severity Reaction Status Date / Time No Known Allergies Allergy Verified 12/06/21 10:42 [No Known Allergies*] Review of Systems Review of Systems: Constitutional : + Fevers/ chills/fatigue /malaise, No Weight loss, No Night Sweats ENT/Mouth : No Hearing loss, No Ear Pain, No Nasal Congestion, No Sinus Pain, No Hoarseness, No sore throat, No Rhinorrhea, No Swallowing Difficulty Eyes: No Eye Pain, No Swelling, No Redness, No Foreign Body, No Discharge, No Vision Changes Cardiovascular : No Chest Pain, + SOB, No Dyspnea on Exertion, No Orthopnea, No Edema, No Palpitations Respiratory : + Cough, + Sputum, + Wheezing, No Smoke Exposure, + Dyspnea Gastrointestinal : resolved nausea vomiting, No Diarrhea, No Constipation, No abdominal Pain, No Hematochezia, No Melena Genitourinary : no irregular bleeding, No Dysuria, No Urinary Frequency, No Hematuria, No Urinary Incontinence, No Urgency, No Flank Pain, No Urinary Flow Changes, No Hesitancy Musculoskeletal : No joint pain, + Myalgias, No Joint Swelling Skin : No Skin Lesions, No rash Neuro : No Weakness, No Numbness, No Paresthesias, No Loss of Consciousness, No Dizziness, No Headache Psych : No Anxiety/Panic, No Depression, No SI/HI/AH/VH, No Social Issues, Heme/Lymph: No Bruising, No Bleeding,No Lymphadenopathy Endocrine : No Polyuria, No Polydipsia, No Temperature Intolerance Yes all other systems are reviewed and are negative [facility] Past Medical History Attestation statement: The following information was validated with the patient. Medical History Asthma Depression History of renal calculi Surgical History H/O section Family History Family History Father Heart failure Myocardial infarct Mother Diabetes Maternal Uncle Alcohol abuse Social History Social History Housing: House Alcohol intake: current Alcohol intake frequency: a few times a month Patient Tobacco Use Status: Current everyday Tobacco user Tobacco use type: Cigarette Cigarette Packs Per Day: 1 e-Cigarette/Vaping Use: Never Used Second Hand Smoke Exposure: No Advance Directives: No Advance Directives Information Provided: Yes Current occupational status: employed Cognitive needs: No Hearing needs: No Vision needs: No Physical Exam Vital Signs: Vital Signs: Last Vital Signs Temp 97.8 F 12/26/21 12:18 Pulse 72 12/26/21 14:23 Resp 18 12/26/21 14:23 BP 153/76 H 12/26/21 12:18 Pulse Ox 98 12/26/21 12:18 BMI result Body Mass Index 40.2 vital signs have been reviewed as normal and appeared to be correct. Blood pressure 153/76. Heart rate normal. Respiration rate normal. Temperature normal. Oxygen saturation normal. Appearance: Alert. Oriented X3. No acute distress. Head: Normal external exam. Normocephalic. Atraumatic. Eyes: PERRLA. EOMI. Conjunctiva and sclera normal. Eyelids normal. ENT: EAC normal. TM's Normal. Pharynx normal. Uvula midline. Moist mucous membranes. No lesions/ulcerations or masses noted on the tongue. Normal voice. No trismus noted. No drooling noted. No muffled voice noted. Neck: Normal inspection. Neck supple. FROM. No adenopathy. Thyroid Normal. No tracheal deviation noted. No crepitus is noted. No meningeal signs. No neck mass noted. No signs of trauma noted. CVS: Normal heart rate and rhythm. Heart sound normal. Pulses normal throughout. No murmurs/rales/gallops. Respiratory: In mild respiratory distress with decreased breath sounds and inspiratory and expiratory wheezing throughout with rhonchi noted. No rales noted. Chest nontender. No crepitus is noted. No signs of trauma noted. No accessory muscle usage noted. No tracheal tugging noted. No abdominal retractions noted. Abdomen: Soft and nontender. Bowel sounds normal in all 4 quadrants. No distention noted. No organomegaly noted. No visible injury noted. Back: No CVA tenderness. Full range of motion noted. Nontender. No signs of trauma. Patient neuro intact bilaterally and distally on all 4 extremities. Patient's reflexes intact bilaterally and distally on all 4 extremities. No rashes/lesion/induration/fluctuance or signs of infection noted. Skin: Skin warm and dry. Normal skin color. Normal skin turgor. No rashes/lesions/lacerations noted. Extremities: No lower extremity edema. No calf tenderness is noted. Extremities exhibit normal range of motion and nontender. Neuro: Oriented X 3. No motor deficit. No sensory deficit. Reflexes normal. Normal steady gait. No focal neuro deficits noted. CN's II-XII intact bilaterally? Vascular: + radial pulses/+ 2 distal pedal pulses/+2 dorsalis pedis b/l. Normal cap refill. No cyanosis noted to upper extremity nails and lower extremity toes nails. Course Course Course Narrative: Will obtain a chest x-ray. Patient negative for COVID and influenza. Patient received a breathing treatment for an hour long she reports she feels much better. Will also give 60 mg of prednisone and start the patient all Augmentin for bronchitis with bronchospasm provide an albuterol inhaler instructions return if any new or worsening symptoms. Patient understands agrees with this plan. MDM - URI/Sore Throat Medical Records Attestation: I reviewed the patient's medical records. Lab Data Attestation: I reviewed the patient's lab results. Labs: Lab Results 12/26/21/01/11 Range/Units 12:21 12:21 COVID-19 ([facility]) Negative (Negative) COVID-19 Clin Com See Note Influenza Type A ([facility]OLANN) Negative (Negative) Influenza Type B ([facility]ANN) Negative (Negative) Influenza A & B Note See Note Imaging Data Chest x-ray: Attestation: I personally reviewed and interpreted this imaging study as follows: Radiologist's impression: FINDINGS: No significant abnormality is noted involving the heart, lungs, mediastinum, bony thorax or soft tissues. XR/XR chest 2V IMPRESSION: Unremarkable examination. Critical Care Time Critical Care Time Critical Care Time: Yes Total Critical Care Time: 60 Attestation: I personally attest to this time spent taking care of the patient Discharge Plan Discharge Clinical Impression: Acute bronchitis with bronchospasm Patient Disposition: Home, Self-Care Instructions: Acute Bronchitis (ED), How to Use a Dry-Powder Inhaler (ED), Wheezing (ED) Prescriptions: New amoxicillin-pot clavulanate 875-125 mg tablet 1 tab PO BID 10 Days Qty: 20 0RF prednisone 20 mg tablet 40 mg PO DAILY 5 Days Qty: 10 0RF codeine-guaifenesin [Guaifenesin AC] 10-100 mg/5 mL liquid 5 ml PO Q6H PRN (Reason: cold symptoms) Qty: 120 0RF No Action doxycycline hyclate 100 mg tablet 100 mg PO BID 10 Days Qty: 20 0RF cephalexin 500 mg capsule 500 mg PO Q6H 10 Days Qty: 40 0RF Referrals: Po,Raven Robles MD [Primary Care Provider] - 2 days Stand Alone Forms: Work/School Release
[2021-12-26] MEDS: Albuterol Sulfate 90 MCG 8 GM INHALER 1 PUFF INHALE (15:11)
[2021-12-26] MEDS: predniSONE 20 MG TABLET 60 MG PO (15:11)
[2021-12-26] MEDS: Amoxicillin/Potassium Clav 875 MG TABLET PO (15:12)
== END 2021-12-26 15:17 | disposition home or self-care (01) ==
PROVIDERS: Emergency Provider Student in an Organized Health Care Education/Training Program; PCP Internal Medicine
DX: J20.9 Acute bronchitis, unspecified (principal); Z20.822 Contact with and (suspected) exposure to COVID-19; R50.9 Fever, unspecified; F17.200 Nicotine dependence, unspecified, uncomplicated; I10 Essential (primary) hypertension; E78.5 Hyperlipidemia, unspecified
CPT/HCPCS: 71046; 87502; 87635; 94640; 94644; 99283; 99284

== ENCOUNTER 2022-01-30 21:34 | Emergency (ER) | payer OTHER, SELFPAY ==
--- NOTE | ~2022-01-30 | XR_ITS ---
EXAMINATION: XR SHOULDER, RIGHT CLINICAL INFORMATION: Shoulder pain COMPARISON: None TECHNIQUE: Four views of the right shoulder. FINDINGS: The bones and soft tissues are normal. No fracture. Glenohumeral and acromioclavicular alignment is anatomic with normal joint space. No abnormal soft tissue calcifications. XR/XR shoulder RT min 2V IMPRESSION: Normal right shoulder.
[2022-01-30 22:50] VITALS: BP 150/93; PULSE 87; RESP 18; TEMP 36.8; O2SAT 100; BMI 41.3
--- NOTE | 2022-01-31 00:02 | ED.EXTPRO ---
HPI - Extremity Problem General Chief complaint: Extremity Injury, Upper Stated complaint: right shoulder pain Time Seen by Provider: 01/31/22 00:02 History of Present Illness HPI Narrative: Patient is a 41-year-old female presents today with having right shoulder pain. Pain worse with movement. No chest pain no shortness of breath. No pain on movement of the opposite shoulder. No diaphoresis. No headache no dizziness. History of having shoulder pain the past. Patient claims his symptoms improved over the last 3 months without getting bad again. There is no weakness at the elbow no weakness in the hands. Ambulate with normal gait. Related Data Previous Rx's Medication Instructions Recorded cephalexin 500 mg capsule 500 mg PO Q6H 10 days #40 caps 11/30/21 doxycycline hyclate 100 mg tablet 100 mg PO BID 10 days #20 tabs 11/30/21 amoxicillin 875 mg-potassium 1 tab PO BID 10 days #20 tabs 12/26/21 clavulanate 125 mg tablet codeine 10 mg-guaifenesin 100 mg/5 5 ml PO Q6H PRN cold symptoms #120 12/26/21 mL oral liquid (Guaifenesin AC) mL prednisone 20 mg tablet 40 mg PO DAILY rash 5 days #10 tabs 12/26/21 Allergies Allergy/AdvReac Type Severity Reaction Status Date / Time No Known Allergies Allergy Verified 01/30/22 22:50 [No Known Allergies*] Review of Systems Review of Systems: Positive pain to right shoulder. No chest pain or shortness breath no nausea no vomiting Yes all other systems are reviewed and are negative PMFSH Past Medical History Attestation statement: The following information was validated with the patient. Medical History Asthma Depression History of renal calculi Surgical History H/O section Family History Family History Father Heart failure Myocardial infarct Mother Diabetes Maternal Uncle Alcohol abuse Social History Social History Housing: House Alcohol intake: current Alcohol intake frequency: a few times a month Patient Tobacco Use Status: Current everyday Tobacco user Tobacco use type: Cigarette Cigarette Packs Per Day: 1 e-Cigarette/Vaping Use: Never Used Second Hand Smoke Exposure: No Advance Directives: No Current occupational status: employed Cognitive needs: No Hearing needs: No Vision needs: No Physical Exam Vital Signs: Vital Signs: Last Vital Signs Temp 98.2 F 01/30/22 22:50 Pulse 87 01/30/22 22:50 Resp 18 01/30/22 22:50 BP 150/93 H 01/30/22 22:50 Pulse Ox 100 01/30/22 22:50 O2 Del Method 01/30/22 22:50 BMI result Body Mass Index 41.3 Appearance: Alert. Oriented X3. No acute distress. Eyes: Pupils equal, round and reactive to light. ENT: Pharynx normal. Neck: Normal inspection. Neck supple. No lymph nodes noted. No crepitus CVS: Normal heart rate and rhythm. Pulses normal. Normal S1 and S2 Respiratory: No respiratory distress. Breath sounds normal. No Wheezing. No rales Abdomen: Soft and nontender. No rigidity. No distention. good BS x4 Skin: Skin warm and dry. Normal skin color. Normal skin turgor. Extremities: No lower extremity edema. Neurovascular intact to all extremities. No Lacerations. No Rash. Full range of motion at the right shoulder pain on elevating the shoulder greater than 90 degrees. No pain on internal external rotation. Distal pulses intact skin intact movement at the elbow wrist hand all normal. Neuro: Oriented X 3. No motor deficit. No sensory deficit. Moving all extermities. No slurred speech MDM - Extremity (Nontraumatic) MDM Narrative Medical decision making narrative: Questions brain to the shoulder. We have patient follow with orthopedics on an outpatient basis x-ray showed no acute fracture per Discharge Plan Discharge Clinical Impression: Shoulder sprain Patient Disposition: Home, Self-Care Instructions: Shoulder Sprain (ED) Prescriptions: No Action doxycycline hyclate 100 mg tablet 100 mg PO BID 10 Days Qty: 20 0RF cephalexin 500 mg capsule 500 mg PO Q6H 10 Days Qty: 40 0RF amoxicillin-pot clavulanate 875-125 mg tablet 1 tab PO BID 10 Days Qty: 20 0RF prednisone 20 mg tablet 40 mg PO DAILY 5 Days Qty: 10 0RF codeine-guaifenesin [Guaifenesin AC] 10-100 mg/5 mL liquid 5 ml PO Q6H PRN (Reason: cold symptoms) Qty: 120 0RF Referrals: Philippe Tobin MD [Physician] - Po,Raven Robles MD [Primary Care Provider] -
== END 2022-01-31 00:27 | disposition home or self-care (01) ==
PROVIDERS: Emergency Provider Emergency Medicine Emergency Medical Services; PCP Internal Medicine
DX: S43.401A Unspecified sprain of right shoulder joint, initial encounter (principal); X58.XXXA Exposure to other specified factors, initial encounter; Y93.9 Activity, unspecified; Y92.9 Unspecified place or not applicable; Y99.9 Unspecified external cause status; F17.210 Nicotine dependence, cigarettes, uncomplicated; Z71.6 Tobacco abuse counseling; Z79.899 Other long term (current) drug therapy
CPT/HCPCS: 73030; 99281; 99283

== ENCOUNTER 2022-06-02 12:21 | Outpatient (REF) | payer OTHER, SELFPAY | END 2022-06-02 12:22 | disposition home or self-care (01) | LOC: HO.LAB 12:21 | PROVIDERS: PCP Internal Medicine; Visit Provider Internal Medicine | DX: Z13.89 Encounter for screening for other disorder (principal) ==

== ENCOUNTER 2022-06-19 15:24 | Outpatient (REF) | payer OTHER, SELFPAY ==
--- NOTE | ~2022-06-19 | MM_ITS ---
EXAMINATION: MM SCREENING DIGITAL BREAST TOMOSYNTHESIS, BILATERAL CLINICAL INFORMATION: Screening. Asymptomatic. Age 42. No prior breast imaging. No known family history breast cancer. The lifetime risk of breast cancer based on the Tyrer-Cuzick Model is 8%. COMPARISON: None (current study represents initial baseline exam). TECHNIQUE: Digital breast tomosynthesis is performed in both the craniocaudal and mediolateral oblique views along with computer-aided detection (CAD). Synthesized 2D images are generated from the tomosynthesis. FINDINGS: The breasts are heterogeneously dense, which may obscure small masses (ACR BI-RADS breast composition Category c). Right breast has subtle oval parenchymal asymmetry mid upper outer quadrant. As this represents initial baseline exam, patient will be recalled for additional imaging to fully characterize. Neither breast shows architectural abnormality or abnormal calcifications. Left breast shows no asymmetric density or mass. Bilateral axilla and skin contours are unremarkable. MM/MM tomosynthesis screening BI IMPRESSION: Right: -Subtle focal parenchymal asymmetry mid upper outer quadrant, baseline exam. Left: -No mammographic evidence of malignancy. ASSESSMENT: BI-RADS 0: Incomplete - Need Additional Imaging Evaluation RECOMMENDATION: 1. Additional views of the right breast (spot CC, spot ML). 2. Targeted ultrasound if warranted after review of the additional views. 3. Radiology department staff will contact the patient for additional imaging. This patient's information was entered into a reminder system with a target due date for their next mammogram.
== END 2022-06-19 15:25 | disposition home or self-care (01) ==
LOC: HO.MAMMO 15:24
PROVIDERS: PCP Internal Medicine; Visit Provider Internal Medicine
DX: Z12.31 Encounter for screening mammogram for malignant neoplasm of breast (principal)
CPT/HCPCS: 77063; 77067

== ENCOUNTER 2022-07-03 12:24 | Outpatient (REF) | payer OTHER, SELFPAY ==
--- NOTE | ~2022-07-03 | MM_ITS ---
EXAMINATION: MM DIAGNOSTIC DIGITAL BREAST TOMOSYNTHESIS, RIGHT US DIAGNOSTIC ULTRASOUND BREAST, RIGHT CLINICAL INFORMATION: Recall from baseline screening for subtle oval parenchymal asymmetry mid upper outer right breast. COMPARISON: Mammography: 06/19/2022 (baseline). TECHNIQUE: Digital breast tomosynthesis is performed. 2D images are generated from the tomosynthesis. The following views are obtained: Spot CC, spot ML. Ultrasound right breast is targeted to the upper outer quadrant. Grayscale imaging and color Doppler are performed without and with harmonics. FINDINGS: The breasts are heterogeneously dense, which may obscure small masses (ACR BI-RADS breast composition Category c). The additional spot views again suggested vague oval mass central upper outer breast under 2 cm. No architectural abnormality. Margins are smooth but obscured. Ultrasound demonstrates an incidental simple cyst 10:00 position 7 cm from nipple measuring 1.9 x 1.4 x 1.8 cm. This corresponds to the finding on mammography. There are a few tiny satellite simple cysts in the area, under 0.5 cm. No solid mass or architectural abnormality. Results are discussed with the patient at time of visit. MM/MM tomosynthesis added views R IMPRESSION: -Simple cyst upper outer right breast 1.9 cm corresponding to recent baseline mammography. ASSESSMENT: BI-RADS 2: Benign RECOMMENDATION: Routine annual mammography screening. This patient's information was entered into a reminder system with a target due date for their next mammogram.
== END 2022-07-03 12:25 | disposition home or self-care (01) ==
LOC: HO.MAMMO 12:24
PROVIDERS: PCP Internal Medicine; Visit Provider Internal Medicine
DX: N64.89 Other specified disorders of breast (principal)
CPT/HCPCS: 76642; 77061; 77065

== ENCOUNTER 2023-05-29 11:58 | Outpatient (AMB) | payer OTHER, SELFPAY ==
--- NOTE | 2023-05-29 12:00 | A.OFFPC_ITS ---
Vital Signs 05/29/23 12:01 Height 5 ft 2 in Weight 255 lb BMI 46.6 BP 132/78 Blood Pressure Location Lt brachial Position Sitting Pulse 80 Pulse Source Pulse Oximeter Pulse Oximetry (%) 98 Oxygen Delivery Method Room Air Intake Visit Reasons: Annual Exam+NEEDS PHQ9 + THRIVE Allergies No Known Allergies [No Known Allergies*] Allergy (Verified 05/29/23 12:01) Medication List - Last Reconciled 05/29/23 by Raven Parham MD Tobacco use date assessed: 05/29/23 Dental Screening Dental Screen Date: 05/29/23 Did you have a dental visit in the last 12 months?: Yes Did you have a dental problem in the last 6 months where you did not have access to dental care?: No Was dental information given to patient?: Patient has dentist HPI Annual Exam+NEEDS PHQ9 + THRIVE HPI Details 43-year-old obese female smoker with hyp ertension GERD hypercholesterolemia impaired glucose tolerance coming in for physical exam. Last seen in May 2022. [facility] Medical History (Updated 05/29/23 @ 12:15 by Raven Parham MD) Asthma Infected sebaceous cyst Swelling of right index finger Hand swelling UTI (urinary tract infection) Cellulitis of eyebrow Plantar fasciitis Tinea pedis of both feet Cervical cancer screening Hematuria Vitamin D deficiency Annual physical exam Vision changes Depression History of renal calculi Surgical History H/O section Family History (Updated 05/29/23 @ 12:02 by Ambar Haddad CMA) Father Heart failure Myocardial infarct Mother Diabetes Maternal Uncle Alcohol abuse Other Mental health disorder Social History (Updated 05/29/23 @ 12:11 by Raven Parham MD) Housing: House Alcohol intake: current Alcohol intake frequency: a few times a month Patient Tobacco Use Status: Current everyday Tobacco user Tobacco use type: Cigarette Cigarette Packs Per Day: 1 Years Smoked: smokes 1 pack a day started 22 years old e-Cigarette/Vaping Use: Never Used Second Hand Smoke Exposure: No Current occupational status: employed Cognitive needs: No Hearing needs: No Vision needs: No Questionnaire PHQ-9 Over the last 2 weeks, how often have you been bothered by any of the following problems? 1. Little interest or pleasure in doing things: not at all 2. Feeling down, depressed, or hopeless: not at all 3. Trouble falling or staying asleep, or sleeping too much: not at all 4. Feeling tired or having little energy: not at all 5. Poor appetite or overeating: not at all 6. Feeling bad about yourself - or that you are a failure or have let yourself or your family down: not at all 7. Trouble concentrating on things, such as reading the newspaper or watching television: not at all 8. Moving or speaking so slowly that other people could have noticed. Or the opposite - being so fidgety or restless that you have been moving around a lot more than usual: not at all 9. Thoughts that you would be better off or of hurting yourself in some way: not at all Total score: 0 Depression Screening Interpretation: Negative Depression Screening Done: Yes Source: Developed by Drs. Lenin Centeno, Juju Keller, Germain Dominguez and colleagues, with an educational andree from [employer]. Thrive Questionnaire Date Thrive assessed: 05/29/23 I am a: Patient What is your living situation today?: I have a steady place to live Within the past 12 months, did the food you bought not last and you didn't have the money to get more?: Never true Within the past 12 months, did you worry whether your food would run out before you got money to buy more?: Never true Do you have trouble paying for medicines?: No Do you have trouble getting transportation to medical appointments?: No Do you have trouble paying your heating and electricity bill?: No Do you have trouble taking care of your child, family member or friend?: No Do you have trouble with day-to-day activities such as bathing, preparing meals, shopping, managing finances, etc.?: No Are you currently unemployed and looking for a job?: No Are you interested in more education?: No Currently or been in a relationship where the following occur: no concerns reported AUDIT C Alcohol Use Questionnaire (AUDIT-C) 1. How often do you have a drink containing alcohol?: 2-4 times a month 2. How many drinks containing alcohol do you have on a typical day when you are drinking?: 1 or 2 3. How often do you have six or more drinks on one occasion?: Never Total Score: 2 LELAND-7 AMB Questionnaire LELAND-7 Date LELAND - 7 assessed: 05/29/23 Feeling nervous, anxious, or on edge: 0 = Not at all Not being able to stop or control worryin = Not at all Worrying too much about different things: 0 = Not at all Trouble relaxin = Not at all Being so restless that it is hard to sit still: 0 = Not at all Becoming easily annoyed or irritable: 0 = Not at all Feeling afraid as if something awful might happen: 0 = Not at all Total LELAND-7 score (0-4 normal; 5-9 mild; 10-14 moderate; 15-21 severe): 0 Source: Developed by Drs. Lenin Centeno, Juju Keller, Germain Dominguez and colleagues, with an educational andree from [employer]. Review of Systems Const Denies poor appetite and Denies weakness Eyes Denies no additional complaints ENT Reports Normal hearing present, Denies dizziness, Denies nasal congestion, Denies tinnitus and Denies sore throat Card Denies chest pain, Denies syncope, Denies rapid heart rate and Denies dyspnea Resp Denies cough and Denies dyspnea GI Denies change in stool character, Reports constipation, Denies diarrhea, Denies nausea and Denies vomiting Denies urinary frequency, Denies difficulty voiding and Denies dysuria Neuro Reports Normal hearing present, Denies confusion, Denies dizziness, Denies syncope and Denies weakness Psych Denies confusion Physical exam (Primary Care) Vital Signs: Last Vital Signs Pulse 80 05/29/23 12:01 BP 132/78 05/29/23 12:01 Pulse Ox 98 05/29/23 12:01 Oxygen Delivery Method Room Air 05/29/23 12:01 BMI result Body Mass Index 46.6 Tobacco/Smoking Status: Tobacco use Status Tobacco use date assessed 05/29/23 05/29/23 12:04 Patient Tobacco Use Status Current everyday Tobacco 05/29/23 12:11 Tobacco use type Cigarette 05/29/23 12:11 e-Cigarette/Vaping Use Never Used 05/29/23 12:11 PHQ-9: PHQ-9 Score PHQ-9: Total score 0 05/29/23 12:04 Depression Screening Interpretation: Negative Thrive Assessment: Date of Thrive Assessment Date Thrive assessed 05/29/23 05/29/23 12:04 Currently or been in a relationship where the following occur: no concerns reported Const General: No confusion Orientation/consciousness: No confusion HENMT Head: Yes normocephalic Ears: external ears normal and TM's normal bilaterally Face and sinus: Yes normal facial exam Mouth: moist mucous membranes Throat: Yes tonsils normal Eyes Conjunctivae: conjunctivae normal Pupils: Equal, round and reactive pupils present and Pupil accommodation reflex normal Direct Ophthalmoscopy: normal light reflex Neck Neck: No lymphadenopathy Thyroid: Thyroid normal Chest Chest palpation & inspection: normal inspection of the chest Resp Effort & Inspection: normal respiratory effort and no audible wheezes Auscultation: clear to auscultation bilaterally, no crackles, no wheezes and lung sounds not diminished Cardio Rate: regular rate Rhythm: regular rhythm Peripheral pulses: radial pulses present and dorsalis pedis present GI Palpation (GI): no masses Auscultation: normal bowel sounds and normoactive bowel sounds Rectal Exam - Female: deferred Skin General skin exam: no rashes or lesions noted Rashes: no rashes Neuro General: No confusion Cranial nerves: Yes Equal, round and reactive pupils present and Yes Normal hearing present Cognition (Neuro): normal cognition Gait exam (Neuro): Normal gait present Motor exam (neuro): 5/5 motor strength present throughout Deep tendon reflexes (DTR's): Right brachioradialis reflex intensity grade: 2+, Left brachioradialis reflex intensity grade: 2+, Right patellar reflex intensity grade: 2+ and Left patellar reflex intensity grade: 2+ Extrem General: No edema Immunizations Boostrix Tdap 2.5 Lf unit-8 mcg-5 Lf/0.5 mL intramuscular syringe Performing Provider: Raven Parham MD Performing Location: [facility] Administered by: Ambar Haddad CMA on 05/29/23 12:27 Dose Route Admin Location Dispensed Lot Number Expiration Date NDC Label Folder 0.5 mL IM Left Deltoid 0.5 mL [id number] 08/10/25 [id number] [employer] VIS Given Date VIS Provided VIS Publication Date 05/29/23 Single Vaccine 21 Eligibility Eligibility Date Funding Source Not [facility] Eligible 05/29/23 Private Assessment and Plan Assessment & Plan (1) Annual physical exam: Code(s): Z00.00 - Encounter for general adult medical examination without abnormal findings (2) Tobacco abuse: Code(s): Z72.0 - Tobacco use Plan: Patient is strongly advised to stop smoking! (3) Obesity: Code(s): E66.9 - Obesity, unspecified Qualifiers: Body mass index: BMI 40.0-44.9 Obesity classification: adult class 3 (BMI >= 40) Obesity type: due to excess calories Serious obesity comorbidity presence: without serious comorbidity Qualified Code(s): E66.01 - Morbid (severe) obesity due to excess calories; Z68.41 - Body mass index [BMI]40.0- 44.9, adult Plan: Diet and exercise (4) Impaired glucose tolerance: Code(s): R73.02 - Impaired glucose tolerance (oral) Plan: Decrease the amount of carbohydrate intake, pasta, bread, rice and potatoes are all sugar and that is aside from all the sweet stuff, remember that fruits are good but they are Sweet also. (5) Hypercholesterolemia: Code(s): E78.00 - Pure hypercholesterolemia, unspecified Plan: Avoid fried foods, chicken skin, eggs, butter margarine, pastries and meat. Be it pork or beef they have a lot of cholesterol LDL goal of less than 130 and triglyceride of less than 150. Reminded about blood work (6) GERD (gastroesophageal reflux disease): Code(s): K21.9 - Gastro-esophageal reflux disease without esophagitis Plan: Avoid the foods that causes that usually spicy foods, tomato products, juices, coffee, soda and foods that your sensitive to. After eating do not lie down, allow 3-4 hours before in lie down. And keep the head of bed above 30 degrees to avoid the acid from going up. (7) Hypertension: Code(s): I10 - Essential (primary) hypertension Plan: Continue with blood pressure medication. Decrease salt intake and exercise patient is on hydrochlorothiazide 25 mg once a day (8) Breast cancer screening by mammogram: Code(s): Z12.31 - Encounter for screening mammogram for malignant neoplasm of breast Plan: Reminded about mammogram (9) Left ankle pain: Comment: 04/2023 Code(s): M25.572 - Pain in left ankle and joints of left foot Orders: Orders AMB Hemoglobin A1c Today Z13.9 - Encounter for screening, unspecified MM tomosynthesis screening BI Today Z12.31 - Encounter for screening mammogram for malignant neoplasm of breast T Spot TB Today Z00.00 - Encounter for general adult medical examination without abnormal findings Rubeola IgG (Measles) Today Z02.1 - Encounter for pre-employment examination XR ankle LT 2V Today M25.572 - Pain in left ankle and joints of left foot Coding Level of Care Code Est Pt Prev Care 40-64y(13117) Diagnoses Annual physical exam Z00.00 Tobacco abuse Z72.0 Class 3 severe obesity due to excess calories without serious comorbidity with body mass index (BMI) of 40.0 to 44.9 in adult E66.01; Z68.41 Body mass index: BMI 40.0-44.9 Obesity classification: adult class 3 (BMI >= 40) Obesity type: due to excess calories Serious obesity comorbidity presence: without serious comorbidity Impaired glucose tolerance R73.02 Hypercholesterolemia E78.00 GERD (gastroesophageal reflux disease) K21.9 Hypertension I10 Breast cancer screening by mammogram Z12.31 Left ankle pain M25.572
[2023-05-29 12:01] VITALS: BP 132/78; PULSE 80; O2SAT 98; BMI 46.6
== END 2023-05-29 12:32 | disposition home or self-care (01) ==
LOC: HO.HMGH 11:58
PROVIDERS: PCP Internal Medicine; Visit Provider Internal Medicine
DX: Z00.00 Encounter for general adult medical examination without abnormal findings (principal); E66.01 Morbid (severe) obesity due to excess calories; Z68.41 Body mass index [BMI] 40.0-44.9, adult; Z72.0 Tobacco use; R73.02 Impaired glucose tolerance (oral); E78.00 Pure hypercholesterolemia, unspecified; Z23 Encounter for immunization; K21.9 Gastro-esophageal reflux disease without esophagitis; I10 Essential (primary) hypertension; Z12.31 Encounter for screening mammogram for malignant neoplasm of breast; M25.572 Pain in left ankle and joints of left foot
CPT/HCPCS: 90471; 90715; 99396

== ENCOUNTER 2023-09-11 08:30 | Outpatient (REF) | payer OTHER, SELFPAY ==
[2023-09-11 08:50] LABS: MANUAL DIFF FLAG NO
[2023-09-11 09:10] LABS: Basophils Percent Auto 0.4 % (0-2); Eosinophils Absolute Auto 0.3 X10*3/uL (0.0-0.4); Eosinophils Percent Auto 3.2 % (0-4); Hematocrit 46.4 % (37.0-47.0); Hemoglobin 15.2 g/dl (12.0-16.0); Imm Gran Abs Auto 0.04 X10*3/uL (0.00-0.03); Imm Gran Pct Auto 0.4 % (0.0-0.4); Lymphocytes Absolute Auto 3.2 X10*3/uL (1.2-4.9); Lymphocytes Percent Auto 32.3 % (20-40); Mean Corpuscular HGB Conc 32.8 g/dl (31.0-35.0); Mean Corpuscular Hemoglobin 28.2 pg (27.0-33.0); Mean Corpuscular Volume 86.1 fL (80.0-98.0); Mean Platelet Volume 10.4 fL (9.4-12.3); Monocytes Absolute Auto 0.8 X10*3/uL (0.1-1.2); Monocytes Percent Auto 8.3 % (2-11); Neutrophils Absolute Auto 5.5 x10*3/uL (2.0-8.3); Neutrophils Percent Auto 55.4 % (45-73); Platelet Count 316 X10*3/uL (160-400); Red Blood Count 5.39 X10*6/uL (4.20-5.50); White Blood Count 9.9 X10*3/uL (4.8-10.8)
[2023-09-11 09:42] LABS: Alanine Aminotransferase 21 U/L (0-31); Albumin Level 3.8 g/dL (3.5-5.0); Alkaline Phosphatase 83 U/L (39-117); Anion Gap 14 (12-20); Aspartate Amino Transferase 17 U/L (5-31); Bilirubin Total 0.5 mg/dL (0.0-1.0); Blood Urea Nitrogen 11 mg/dL (9-16); Calcium 9.1 mg/dL (8.4-10.2); Carbon Dioxide 24 mmol/L (22-29); Chloride 103 mmol/L (96-108); Cholesterol 204 mg/dL (<200); Estimated Glomerular Filt Rate > 60; Glucose Random 110 mg/dL (60-115); HDL Cholesterol 54 mg/dL (>40); LDL Cholesterol Calculated 125 mg/dL (<100); Potassium 3.8 mmol/L (3.3-5.1); Sodium 137 mmol/L (135-145); Total Protein 7.3 g/dL (6.5-8.0); Triglycerides 129 mg/dL (<150)
[2023-09-11 09:56] LABS: Free T4 (Free Thyroxine) 0.99 ng/dL (0.71-1.85); Thyroid Stimulating Hormone 2.76 uIU/mL (0.32-4.0); Vitamin D 25-OH Total 10.7 ng/mL (>30)
[2023-09-11 10:09] LABS: Folate 5.6 ng/mL (> or = 4.0); Vitamin B12 407 pg/mL (200-900)
[2023-09-14 21:04] LABS: TS Negative Control Passed; TS Panel A 1; TS Panel B 0; TS Positive Control Passed; TSpotTB Negative (Negative)
== END 2023-09-11 08:31 | disposition home or self-care (01) ==
LOC: HO.LAB 08:30
PROVIDERS: PCP Internal Medicine; Visit Provider Internal Medicine
DX: Z00.00 Encounter for general adult medical examination without abnormal findings (principal); E78.00 Pure hypercholesterolemia, unspecified; R73.02 Impaired glucose tolerance (oral)
CPT/HCPCS: 36415; 80053; 80061; 82306; 82607; 82746; 84439; 84443; 85025; 86481

== ENCOUNTER 2023-09-12 08:53 | Outpatient (REF) | payer OTHER, SELFPAY ==
--- NOTE | ~2023-09-12 | MM_ITS ---
EXAMINATION: MM SCREENING DIGITAL BREAST TOMOSYNTHESIS, BILATERAL CLINICAL INFORMATION: Screening. Asymptomatic. COMPARISON: Mammography: This study is compared with prior exams dating back to 2021. TECHNIQUE: Digital breast tomosynthesis is performed in both the craniocaudal and mediolateral oblique views along with computer-aided detection (CAD). Synthesized 2D images are generated from the tomosynthesis. FINDINGS: The breasts are heterogeneously dense, which may obscure small masses (ACR BI-RADS breast composition Category c). There are no significant masses, abnormal calcifications, or other abnormalities. MM/MM tomosynthesis screening BI IMPRESSION: No mammographic evidence of malignancy. ASSESSMENT: BI-RADS BI-RADS 1 - Negative RECOMMENDATION: Routine annual mammography screening. 1 year F/U This examination should not preclude the clinical evaluation of a suspicious palpable abnormality. This patient's information was entered into a reminder system with a target due date for their next mammogram.
== END 2023-09-12 08:54 | disposition home or self-care (01) ==
LOC: HO.MAMMO 08:53
PROVIDERS: PCP Internal Medicine; Visit Provider Internal Medicine
DX: Z12.31 Encounter for screening mammogram for malignant neoplasm of breast (principal)
CPT/HCPCS: 77063; 77067

== ENCOUNTER → 2023-09-12 09:15 | Outpatient (BNV) | payer OTHER, SELFPAY | PROVIDERS: PCP Internal Medicine; Visit Provider Radiology Diagnostic Radiology | DX: Z12.31 Encounter for screening mammogram for malignant neoplasm of breast (principal) | CPT/HCPCS: 77063; 77067 ==

== ENCOUNTER 2023-09-26 13:41 | Outpatient (AMB) | payer OTHER, SELFPAY ==
[2023-09-26 14:02] VITALS: BP 136/92; PULSE 80; O2SAT 98; BMI 46.8
--- NOTE | 2023-09-26 14:02 | MHC.PC.OV ---
Vital Signs 09/26/23 14:02 Height 5 ft 2 in Weight 256 lb BMI 46.8 BP 136/92 H Blood Pressure Location Lt brachial Position Sitting Pulse 80 Pulse Source Pulse Oximeter Pulse Oximetry (%) 98 Oxygen Delivery Method Room Air Intake Visit Reasons: High BP, Heavy periods Allergies No Known Allergies [No Known Allergies*] Allergy (Verified 09/26/23 14:02) Medication List - Last Reconciled 09/26/23 by Raven Parham MD lisinopril-hydrochlorothiazide 10-12.5 mg 1 tab PO DAILY Tobacco use date assessed: 09/26/23 Dental Screening Dental Screen Date: 09/26/23 Did you have a dental visit in the last 12 months?: Yes Did you have a dental problem in the last 6 months where you did not have access to dental care?: No Was dental information given to patient?: Patient has dentist HPI High BP HPI Details 43-year-old obese female smoker with impaired glucose tolerance hypercholesterolemia GERD hypertension last seen in May 2023. Patient is reminded about mammogram and this was done in August 2023. Blood work done and is here for follow-up [facility] Medical History (Updated 09/26/23 @ 14:34 by Raven Parham MD) Vitamin D deficiency Breast cancer screening by mammogram Asthma Infected sebaceous cyst Swelling of right index finger Hand swelling UTI (urinary tract infection) Cellulitis of eyebrow Plantar fasciitis Tinea pedis of both feet Cervical cancer screening Hematuria Annual physical exam Vision changes Depression History of renal calculi Surgical History H/O section Family History (Updated 05/29/23 @ 12:02 by Ambar Haddad CMA) Father Heart failure Myocardial infarct Mother Diabetes Maternal Uncle Alcohol abuse Other Mental health disorder Social History (Updated 05/29/23 @ 12:11 by Raven Parham MD) Housing: House Alcohol intake: current Alcohol intake frequency: a few times a month Patient Tobacco Use Status: Current everyday Tobacco user Tobacco use type: Cigarette Cigarette Packs Per Day: 1 Years Smoked: smokes 1 pack a day started 22 years old e-Cigarette/Vaping Use: Never Used Second Hand Smoke Exposure: No Current occupational status: employed Cognitive needs: No Hearing needs: No Vision needs: No Questionnaire PHQ-9 Over the last 2 weeks, how often have you been bothered by any of the following problems? 1. Little interest or pleasure in doing things: not at all 2. Feeling down, depressed, or hopeless: not at all 3. Trouble falling or staying asleep, or sleeping too much: not at all 4. Feeling tired or having little energy: not at all 5. Poor appetite or overeating: not at all 6. Feeling bad about yourself - or that you are a failure or have let yourself or your family down: not at all 7. Trouble concentrating on things, such as reading the newspaper or watching television: not at all 8. Moving or speaking so slowly that other people could have noticed. Or the opposite - being so fidgety or restless that you have been moving around a lot more than usual: not at all 9. Thoughts that you would be better off or of hurting yourself in some way: not at all Total score: 0 Depression Screening Interpretation: Negative Depression Screening Done: Yes Source: Developed by Drs. Lenin Centeno, Juju eKller, Germain Dominguez and colleagues, with an educational andree from [employer]. Thrive Questionnaire Date Thrive assessed: 09/26/23 I am a: Patient What is your living situation today?: I have a steady place to live Within the past 12 months, did the food you bought not last and you didn't have the money to get more?: Never true Within the past 12 months, did you worry whether your food would run out before you got money to buy more?: Never true Do you have trouble paying for medicines?: No Do you have trouble getting transportation to medical appointments?: No Do you have trouble paying your heating and electricity bill?: No Do you have trouble taking care of your child, family member or friend?: No Do you have trouble with day-to-day activities such as bathing, preparing meals, shopping, managing finances, etc.?: No Are you currently unemployed and looking for a job?: No Are you interested in more education?: No Currently or been in a relationship where the following occur: no concerns reported THRIVE Score: 0 AUDIT C Alcohol Use Questionnaire (AUDIT-C) 1. How often do you have a drink containing alcohol?: 2-4 times a month 2. How many drinks containing alcohol do you have on a typical day when you are drinking?: 1 or 2 3. How often do you have six or more drinks on one occasion?: Never Total Score: 2 LELAND-7 AMB Questionnaire LELAND-7 Date LELAND - 7 assessed: 09/26/23 Feeling nervous, anxious, or on edge: 0 = Not at all Not being able to stop or control worryin = Not at all Worrying too much about different things: 0 = Not at all Trouble relaxin = Not at all Being so restless that it is hard to sit still: 0 = Not at all Becoming easily annoyed or irritable: 0 = Not at all Feeling afraid as if something awful might happen: 0 = Not at all Total LELAND-7 score (0-4 normal; 5-9 mild; 10-14 moderate; 15-21 severe): 0 Source: Developed by Drs. Lenin Centeno, Juju Keller, Germain Dominguez and colleagues, with an educational andree from [employer]. Physical exam (Primary Care) Vital Signs: Last Vital Signs Pulse 80 09/26/23 14:02 BP 136/92 H 09/26/23 14:02 Pulse Ox 98 09/26/23 14:02 Oxygen Delivery Method Room Air 09/26/23 14:02 BMI result Body Mass Index 46.8 Tobacco/Smoking Status: Tobacco use Status Tobacco use date assessed 09/26/23 09/26/23 14:03 Patient Tobacco Use Status Current everyday Tobacco 09/26/23 14:03 Tobacco use type Cigarette 09/26/23 14:03 e-Cigarette/Vaping Use Never Used 09/26/23 14:03 PHQ-9: PHQ-9 Score PHQ-9: Total score 0 09/26/23 14:23 Depression Screening Interpretation: Negative Thrive Assessment: Date of Thrive Assessment Date Thrive assessed 09/26/23 09/26/23 14:03 Currently or been in a relationship where the following occur: no concerns reported Const General: alert; No acute distress Eyes Conjunctivae: conjunctivae normal Resp Auscultation: clear to auscultation bilaterally Cardio Rate: regular rate Rhythm: regular rhythm GI Inspection: Yes normal to inspection Extrem General: Yes normal to inspection and No edema Assessment and Plan Assessment & Plan (1) Menorrhagia: Code(s): N92.0 - Excessive and frequent menstruation with regular cycle (2) Hypertension: Code(s): I10 - Essential (primary) hypertension Plan: Continue with blood pressure medication. Decrease salt intake and exercise presently on hydrochlorothiazide 25 mg once a day (3) GERD (gastroesophageal reflux disease): Code(s): K21.9 - Gastro-esophageal reflux disease without esophagitis Plan: Avoid the foods that causes that usually spicy foods, tomato products, juices, coffee, soda and foods that your sensitive to. After eating do not lie down, allow 3-4 hours before in lie down. And keep the head of bed above 30 degrees to avoid the acid from going up. (4) Hypercholesterolemia: Code(s): E78.00 - Pure hypercholesterolemia, unspecified Plan: Avoid fried foods, chicken skin, eggs, butter margarine, pastries and meat. Be it pork or beef they have a lot of cholesterol LDL goal of less than 130 and triglyceride of less than 150. Patient is better (5) Impaired glucose tolerance: Code(s): R73.02 - Impaired glucose tolerance (oral) Plan: Decrease the amount of carbohydrate intake, pasta, bread, rice and potatoes are all sugar and that is aside from all the sweet stuff, remember that fruits are good but they are Sweet also. (6) Tobacco abuse: Code(s): Z72.0 - Tobacco use Plan: Patient is strongly advised to stop smoking! (7) Obesity: Code(s): E66.9 - Obesity, unspecified Qualifiers: Obesity type: due to excess calories Obesity classification: adult class 3 (BMI >= 40) Serious obesity comorbidity presence: without serious comorbidity Body mass index: BMI 40.0-44.9 Qualified Code(s): E66.01 - Morbid (severe) obesity due to excess calories; Z68.41 - Body mass index [BMI]40.0-44.9, adult Plan: Diet and exercise (8) Vitamin D deficiency: Code(s): E55.9 - Vitamin D deficiency, unspecified Orders: Referrals [facility] Referral N92.0 - Excessive and frequent menstruation with regular cycle Medications: New cholecalciferol (vitamin D3) 50 mcg PO DAILY 90 days 90 caps 3RF E55.9 - Vitamin D deficiency, unspecified lisinopril-hydrochlorothiazide 10-12.5 mg 1 tab PO DAILY 30 tabs 5RF I10 - Essential (primary) hypertension Coding Level of Care Code Est Pt Level 4 (64488) Diagnoses Menorrhagia N92.0 Hypertension I10 GERD (gastroesophageal reflux disease) K21.9 Hypercholesterolemia E78.00 Impaired glucose tolerance R73.02 Tobacco abuse Z72.0 Class 3 severe obesity due to excess calories without serious comorbidity with body mass index (BMI) of 40.0 to 44.9 in adult E66.01; Z68.41 Obesity type: due to excess calories Obesity classification: adult class 3 (BMI >= 40) Serious obesity comorbidity presence: without serious comorbidity Body mass index: BMI 40.0-44.9 Vitamin D deficiency E55.9
== END 2023-09-26 14:38 | disposition home or self-care (01) ==
PROVIDERS: PCP Internal Medicine; Visit Provider Internal Medicine
DX: N92.0 Excessive and frequent menstruation with regular cycle (principal); E66.01 Morbid (severe) obesity due to excess calories; Z68.41 Body mass index [BMI] 40.0-44.9, adult; I10 Essential (primary) hypertension; K21.9 Gastro-esophageal reflux disease without esophagitis; E55.9 Vitamin D deficiency, unspecified; E78.00 Pure hypercholesterolemia, unspecified; R73.02 Impaired glucose tolerance (oral); Z72.0 Tobacco use
CPT/HCPCS: 99214

== ENCOUNTER 2023-09-28 13:02 | Outpatient (AMB) | payer OTHER, SELFPAY ==
[2023-09-28 13:10] VITALS: BP 120/84; BMI 47.2
--- NOTE | 2023-09-28 13:10 | MHC.OFFVIS ---
Intake Vital Signs 09/28/23 13:10 Height 5 ft 2 in Weight 258 lb BMI 47.2 BP 120/84 Intake Visit Reasons: excessive/frequent menses/referral Intake Note: before getting her menses and during her menses her blood pressure is high and she bleeds for almost 2 weeks and very heavy bleeding. Patient doesn't want pelvic exam today because she is still on her menses. 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 Information Interpreted: non-clinical & clinical [facility] [employer] Experience Strategy: [facility] [employer] Experience Strategy Present (Aidyn) Allergies No Known Allergies [No Known Allergies*] Allergy (Verified 09/28/23 13:13) Is last menstrual period known: Yes Last menstrual period: 09/21/23 Post menopausal: No HPI excessive/frequent menses/referral HPI Details Patient is here as a new patient referred from her PCC she has very heavy periods they can sometimes last up to 2 weeks they are fairly regular even though they do not necessarily come as exactly the same time every month they do come about once a month. They have always been very heavy lately they are so heavy she can not even sleep because she every time she turns in bed she is afraid she is leaking she uses pads and tampons.. 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 She has had her tubal ligation. She is trying again to lose weight she was as heavy as 350 lb at 1 time and lost about 100 through weight watchers but then she slowly gained it back and she gained at least 50 lb in this last year. She also relates the period To when she has her blood pressure elevated because she thought there was a connection there. She is now on medication for her blood pressure and she is planning to get back on course with trying to eat healthy and cut out soda and cut out all the things she adds to her coffee and work on losing the weight and she is starting on Sunday. She has already cut down on cigarettes. And she is feeling determined to get healthier but she has got a do something about her heavy periods she says Dr. Parham does her Pap smears and she does not have any problem with those. [facility] Medical History (Updated 09/28/23 @ 13:51 by Mary Izaguirre CNM) Vitamin D deficiency Breast cancer screening by mammogram Asthma Infected sebaceous cyst Swelling of right index finger Hand swelling UTI (urinary tract infection) Cellulitis of eyebrow Plantar fasciitis Tinea pedis of both feet Cervical cancer screening Hematuria Annual physical exam Vision changes Depression History of renal calculi Surgical History (Updated 09/28/23 @ 13:14 by TWIN Miranda) Hx of tubal ligation H/O section Family History Father Heart failure Myocardial infarct Mother Diabetes Maternal Uncle Alcohol abuse Other Mental health disorder Social History (Updated 09/28/23 @ 13:15 by TWIN Miranda) Housing: House Alcohol intake: current Alcohol intake frequency: a few times a month Patient Tobacco Use Status: Current everyday Tobacco user Tobacco use type: Cigarette Cigarettes Per Day: 5 e-Cigarette/Vaping Use: Never Used Second Hand Smoke Exposure: No Current occupational status: employed Cognitive needs: No Hearing needs: No Vision needs: No Female Reproductive History Menstrual Age of Menarche: 10 Duration of menses: other Date of last menstrual period: 09/21/23 control method: other (tubal ligation) Total pregnancies: 4 Full term: 2 Number of Living Children: 2 Ab spontaneous: 2 Date of last pap smear: 05/24/21 (negative) Date of Mammogram: 09/12/23 Physical Exam Vital Signs: Last Vital Signs BP 120/84 09/28/23 13:10 BMI result Body Mass Index 47.2 Assessment & Plan Assessment & Plan (1) Menorrhagia: Code(s): N92.0 - Excessive and frequent menstruation with regular cycle (2) Cervical cancer screening: Comment: Patient states she gets all her Paps with her primary care provider Dr. Parham Code(s): Z12.4 - Encounter for screening for malignant neoplasm of cervix (3) Obesity: Code(s): E66.9 - Obesity, unspecified Qualifiers: Obesity type: due to excess calories Obesity classification: adult class 3 (BMI >= 40) Serious obesity comorbidity presence: without serious comorbidity Body mass index: BMI 40.0-44.9 Qualified Code(s): E66.01 - Morbid (severe) obesity due to excess calories; Z68.41 - Body mass index [BMI]40.0-44.9, adult (4) Tobacco abuse: Comment: Patient has embarked on trying to cut way back and will be working on quitting. Code(s): Z72.0 - Tobacco use (5) Hypertension: Code(s): I10 - Essential (primary) hypertension Plan Discussed that for today since she does not want a pelvic exam we are going to talk and make a plan. During this visit we talked about the role of obesity and menorrhagia what options might be available to her and what we need to do to evaluate things. She said she has had a blood count with her primary and she has not anemic. She declines physical exam today because she has her periods still. We will start with a pelvic ultrasound depending on those results we may need to also do an endometrial biopsy at the next visit. Whether that is necessary or not discussed future options to help with her menorrhagia. The fact that her periods are regular is helpful thing the possibility of the presence of fibroids was also discussed. Also discussed options to help with heavy menses control pills and their analogs would not be an option for her because of age smoking and hypertension. Depo-Provera and Nexplanon sometimes can be of benefit at however they come with the side effect of weight gain and would not be recommended for her either. Mirena IU S can be a helpful tool in menorrhagia if there is no contraindication. She had 1 before and she said she got with her 15-year-old with it but she experience pain when she was having intercourse when it was in for about 4 years and later on she went to get it checked out and it was coming out and she was already so is likely that it had become dislodged and that is how the occurred meanwhile she does have her tubes tied. Discussed the process of the evaluation and all of the above and discussed that we would want to place the IUD with her period. Next visit will be to review the ultrasound have a full exam and possibly an endometrial biopsy. Orders: Orders US pelvic and transvaginal Today N92.0 - Excessive and frequent menstruation with regular cycle Coding Level of Care Code New Pt Level 3 (71232) Diagnoses Menorrhagia N92.0 Cervical cancer screening Z12.4 Class 3 severe obesity due to excess calories without serious comorbidity with body mass index (BMI) of 40.0 to 44.9 in adult E66.01; Z68.41 Obesity type: due to excess calories Obesity classification: adult class 3 (BMI >= 40) Serious obesity comorbidity presence: without serious comorbidity Body mass index: BMI 40.0-44.9 Tobacco abuse Z72.0 Hypertension I10 Time Spent (min) 30 Comment 100% [id number] discussing concerns in options and making plan
== END 2023-09-28 13:47 | disposition home or self-care (01) ==
LOC: HO.HWSM 13:02
PROVIDERS: PCP Internal Medicine; Visit Provider Advanced Practice Midwife
DX: N92.0 Excessive and frequent menstruation with regular cycle (principal); Z12.4 Encounter for screening for malignant neoplasm of cervix; E66.01 Morbid (severe) obesity due to excess calories; Z68.41 Body mass index [BMI] 40.0-44.9, adult; Z72.0 Tobacco use; I10 Essential (primary) hypertension
CPT/HCPCS: 99203

== ENCOUNTER → 2023-09-28 13:02 | Outpatient (BNVA) | payer OTHER, SELFPAY | PROVIDERS: PCP Internal Medicine; Visit Provider Advanced Practice Midwife | DX: N92.0 Excessive and frequent menstruation with regular cycle (principal); Z12.4 Encounter for screening for malignant neoplasm of cervix; I10 Essential (primary) hypertension; F17.210 Nicotine dependence, cigarettes, uncomplicated; E66.01 Morbid (severe) obesity due to excess calories; Z68.42 Body mass index [BMI] 45.0-49.9, adult | CPT/HCPCS: 99202 ==

== ENCOUNTER 2023-11-22 15:53 | Outpatient (AMB) | payer OTHER, SELFPAY ==
[2023-11-22 15:54] VITALS: BP 132/76; PULSE 79; TEMP 36.6; O2SAT 97; BMI 47.2
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
== END 2023-11-22 16:32 | disposition home or self-care (01) ==
PROVIDERS: PCP Internal Medicine; Visit Provider Nurse Practitioner Family
DX: S80.02XA Contusion of left knee, initial encounter (principal); S66.912A Strain of unspecified muscle, fascia and tendon at wrist and hand level, left hand, initial encounter; M79.642 Pain in left hand
CPT/HCPCS: 99214

== ENCOUNTER 2023-11-22 16:09 | Outpatient (REF) | payer SELFPAY ==
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
== END 2023-11-22 16:10 | disposition home or self-care (01) ==
LOC: HO.HMGCX 16:09
PROVIDERS: PCP Internal Medicine; Visit Provider Nurse Practitioner Family
DX: M79.642 Pain in left hand (principal); S80.02XA Contusion of left knee, initial encounter; X58.XXXA Exposure to other specified factors, initial encounter; Y93.9 Activity, unspecified; Y92.9 Unspecified place or not applicable; Y99.9 Unspecified external cause status
CPT/HCPCS: 73110; 73130; 73564

== ENCOUNTER 2023-12-08 11:22 | Outpatient (AMB) | payer OTHER, SELFPAY ==
[2023-12-08 13:20] VITALS: BP 132/92; PULSE 85; TEMP 36.6; O2SAT 98; BMI 46.5
--- NOTE | 2023-12-08 13:20 | AM.OFFWIN_ITS ---
Intake Vital Signs 12/08/23 13:20 Height 5 ft 2 in Weight 254 lb BMI 46.5 BP 132/92 H Blood Pressure Location Lt brachial Position Sitting Pulse 85 Pulse Source Pulse Oximeter Temp 97.8 F Temp Source Oral Pulse Oximetry (%) 98 Oxygen Delivery Method Room Air Intake Visit Reasons: EP fell legs bruised/pain back pain Intake Note: Pt is here today Rt side of body pain due to a slip and fall at [employer] on this last Patient Tobacco Use Status: Current everyday Tobacco user Allergies No Known Allergies [No Known Allergies*] Allergy (Verified 12/08/23 13:28) HPI EP fell legs bruised/pain back pain HPI Details Patient is a 43-year-old female comes to the walk-in clinic complaining of right side pain after she slipped on a wet surface and fell while pushing a grocery cart at the grocery store. She reports that the cart fell over sideways, and her legs did the splits, with her falling on her right buttock and upper back. She reports stiffness to the right periscapular area, right upper and mid back, right buttock and posterior thigh area, especially with walking and stretching. She denies weakness, numbness or tingling, no cauda equina or other red flag symptoms. [facility] Medical History Vitamin D deficiency Breast cancer screening by mammogram Asthma Infected sebaceous cyst Swelling of right index finger Hand swelling UTI (urinary tract infection) Cellulitis of eyebrow Plantar fasciitis Tinea pedis of both feet Cervical cancer screening Hematuria Annual physical exam Vision changes Depression History of renal calculi Surgical History Hx of tubal ligation H/O section Family History Father Heart failure Myocardial infarct Mother Diabetes Maternal Uncle Alcohol abuse Other Mental health disorder Social History Housing: House Alcohol intake: current Alcohol intake frequency: a few times a month Patient Tobacco Use Status: Current everyday Tobacco user Tobacco use type: Cigarette Cigarettes Per Day: 5 e-Cigarette/Vaping Use: Never Used Second Hand Smoke Exposure: No Current occupational status: employed Cognitive needs: No Hearing needs: No Vision needs: No Female Reproductive History Menstrual Age of Menarche: 10 Review of Systems Const All systems reviewed & are unremarkable except as noted in HPI and below Physical Exam Vital Signs: Last Vital Signs Temp 97.8 F 12/08/23 13:20 Pulse 85 12/08/23 13:20 BP 132/92 H 12/08/23 13:20 Pulse Ox 98 12/08/23 13:20 Oxygen Delivery Method Room Air 12/08/23 13:20 BMI result Body Mass Index 46.5 Extrem Other: TTP right trapezius, right LS paraspinal. No tenderness over spinous processes. Steady gait. NVI distally General: Yes normal to inspection, Yes full ROM and Yes capillary refill normal Assessment & Plan Assessment & Plan (1) Lumbar strain: Code(s): S39.012A - Strain of muscle, fascia and tendon of lower back, initial encounter Qualifiers: Encounter type: initial encounter Qualified Code(s): S39.012A - Strain of muscle, fascia and tendon of lower back, initial encounter Plan Patient declines x-ray, states that she feels like this is bruising and muscle pain, which I agree with. She already has ibuprofen which she can continue, and I wrote her for a course of Flexeril 10 mg which she can take 3 times a day as long as she has not driving or doing safety sensitive work. She can also heat, stretch and massage the area. 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 She should follow up if symptoms persist or worsen. Medications: New cyclobenzaprine 10 mg PO TID PRN 14 tabs 0RF muscle spasm Coding Level of Care Code Est Pt Level 4 (88011) Diagnoses Strain of lumbar region, initial encounter S39.012A Encounter type: initial encounter
== END 2023-12-08 14:31 | disposition home or self-care (01) ==
PROVIDERS: PCP Internal Medicine; Visit Provider Physician Assistant Medical
DX: S39.012A Strain of muscle, fascia and tendon of lower back, initial encounter (principal)
CPT/HCPCS: 99051; 99214

== ENCOUNTER 2024-03-04 10:46 | Outpatient (AMB) | payer OTHER, SELFPAY ==
--- NOTE | 2024-03-04 10:56 | MHC.OFFWIV ---
Intake Vital Signs 03/04/24 10:57 Height 5 ft 2 in Weight 251 lb BMI 45.9 BP 124/84 Blood Pressure Location Lt radial Position Sitting Pulse 85 Pulse Source Pulse Oximeter Temp 98.4 F Temp Source Oral Pulse Oximetry (%) 98 Oxygen Delivery Method Room Air Intake Visit Reasons: EP- RT leg bruise got bigger Intake Note: pt c/o bruise on RT leg. Growing. Painful to touch Patient Tobacco Use Status: Current everyday Tobacco user Allergies No Known Allergies [No Known Allergies*] Allergy (Verified 03/04/24 10:57) Do you need a note to return to daycare/school/sports/work: Yes HPI EP- RT leg bruise got bigger HPI Details 43 year old female patient presents with a large bruise on the back of her right lower leg. This started two days ago. Patient denies any trauma to area. 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 No history of coagulopathy. Not on any blood thinners. Denies any calf pain, warmth, enlargement, or difficulty walking. She reports bruising was worse/darker yesterday, and today it is more purple in color. [facility] Medical History Vitamin D deficiency Breast cancer screening by mammogram Asthma Infected sebaceous cyst Swelling of right index finger Hand swelling UTI (urinary tract infection) Cellulitis of eyebrow Plantar fasciitis Tinea pedis of both feet Cervical cancer screening Hematuria Annual physical exam Vision changes Depression History of renal calculi Surgical History Hx of tubal ligation H/O section Family History Father Heart failure Myocardial infarct Mother Diabetes Maternal Uncle Alcohol abuse Other Mental health disorder Social History Housing: House Alcohol intake: current Alcohol intake frequency: a few times a month Patient Tobacco Use Status: Current everyday Tobacco user Tobacco use type: Cigarette Cigarettes Per Day: 5 e-Cigarette/Vaping Use: Never Used Second Hand Smoke Exposure: No Current occupational status: employed Cognitive needs: No Hearing needs: No Vision needs: No Female Reproductive History Menstrual Age of Menarche: 10 Review of Systems Const All systems reviewed & are unremarkable except as noted in HPI and below Physical Exam Vital Signs: Last Vital Signs Temp 98.4 F 03/04/24 10:57 Pulse 85 03/04/24 10:57 BP 124/84 03/04/24 10:57 Pulse Ox 98 03/04/24 10:57 Oxygen Delivery Method Room Air 03/04/24 10:57 BMI result Body Mass Index 45.9 Const General: cooperative, healthy appearing, comfortable and no acute distress Nutritional Appearance: obese Resp Effort & Inspection: normal respiratory effort Auscultation: clear to auscultation bilaterally Cardio Rate: regular rate Rhythm: regular rhythm Skin Other: large purple ecchymotic area right lower leg at popliteal area/proximal calf area. 8.5cm L x 13.5cm W. No tenderness to palp. No redness or warmth. Calf circumference equal; 42cm on both legs. Negative Harmeet's sign. Normal pulses distally. No edema. No lesions or open areas. Extrem General: Yes capillary refill normal and Yes no clubbing, cyanosis or edema Psych Appearance: grossly normal Mental Status: mental status grossly normal Speech and movement: Normal speech and movement present Assessment & Plan Assessment & Plan (1) Superficial bruising of lower leg: Code(s): S80.10XA - Contusion of unspecified lower leg, initial encounter Qualifiers: Encounter type: initial encounter Laterality: right Qualified Code(s): S80.11XA - Contusion of right lower leg, initial encounter Plan: Advised patient to monitor area and return if bruise worsens or if she develops any pain, warmth, or swelling of area. We discussed that this will likely improve slowly with time, and we reviewed progression of expected resolution of bruised area. I will check with her PCP Dr. Parham to see if he would like any labs to f/u on this. She verbalizes understanding and agrees to plan. Coding Level of Care Code Est Pt Level 4 (17604) Diagnoses Contusion of right lower leg, initial encounter S80.11XA Encounter type: initial encounter Laterality: right
[2024-03-04 10:57] VITALS: BP 124/84; PULSE 85; TEMP 36.9; O2SAT 98; BMI 45.9
== END 2024-03-04 11:46 | disposition home or self-care (01) ==
PROVIDERS: PCP Internal Medicine; Visit Provider Nurse Practitioner Family
DX: S80.11XA Contusion of right lower leg, initial encounter (principal)
CPT/HCPCS: 99214

== ENCOUNTER 2024-03-07 12:42 | Outpatient (AMB) | payer OTHER, SELFPAY ==
[2024-03-07 12:50] VITALS: BP 130/72; PULSE 79; O2SAT 98; BMI 45.7
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
== END 2024-03-07 13:28 | disposition home or self-care (01) ==
PROVIDERS: PCP Internal Medicine; Visit Provider Internal Medicine
DX: S80.11XA Contusion of right lower leg, initial encounter (principal); H60.91 Unspecified otitis externa, right ear
CPT/HCPCS: 99213

== ENCOUNTER 2024-03-10 15:25 | Outpatient (REF) | payer OTHER, SELFPAY ==
[2024-03-10 15:46] LABS: MANUAL DIFF FLAG NO
[2024-03-10 16:46] LABS: Basophils Percent Auto 0.4 % (0-2); Eosinophils Absolute Auto 0.2 X10*3/uL (0.0-0.4); Eosinophils Percent Auto 1.6 % (0-4); Hematocrit 43.1 % (37.0-47.0); Hemoglobin 14.2 g/dl (12.0-16.0); Imm Gran Abs Auto 0.05 X10*3/uL (0.00-0.03); Imm Gran Pct Auto 0.5 % (0.0-0.4); Lymphocytes Absolute Auto 3.2 X10*3/uL (1.2-4.9); Lymphocytes Percent Auto 29.6 % (20-40); Mean Corpuscular HGB Conc 32.9 g/dl (31.0-35.0); Mean Corpuscular Hemoglobin 28.1 pg (27.0-33.0); Mean Corpuscular Volume 85.2 fL (80.0-98.0); Monocytes Absolute Auto 0.7 X10*3/uL (0.1-1.2); Monocytes Percent Auto 6.3 % (2-11); Neutrophils Absolute Auto 6.6 x10*3/uL (2.0-8.3); Neutrophils Percent Auto 61.6 % (45-73); Platelet Count 332 X10*3/uL (160-400); Red Blood Count 5.06 X10*6/uL (4.20-5.50); Red Cell Distribution Width 14.6 % (11.0-16.0); White Blood Count 10.7 X10*3/uL (4.8-10.8)
[2024-03-10 17:10] LABS: Alanine Aminotransferase 14 U/L (0-31); Albumin Level 3.8 g/dL (3.5-5.0); Alkaline Phosphatase 81 U/L (39-117); Anion Gap 17 (12-20); Aspartate Amino Transferase 15 U/L (5-31); Bilirubin Total 0.4 mg/dL (0.0-1.0); Blood Urea Nitrogen 6 mg/dL (9-16); Calcium 9.6 mg/dL (8.4-10.2); Carbon Dioxide 19 mmol/L (22-29); Chloride 105 mmol/L (96-108); Estimated Glomerular Filt Rate > 60; Glucose Random 133 mg/dL (60-115); Potassium 3.6 mmol/L (3.3-5.1); Sodium 137 mmol/L (135-145); Total Protein 7.1 g/dL (6.5-8.0)
[2024-03-10 17:27] LABS: Free T4 (Free Thyroxine) 0.91 ng/dL (0.71-1.85)
[2024-03-10 17:38] LABS: INTERNATIONAL NORM RATIO 0.9 (0.9-1.1); Prothrombin Time 11.2 SEC (11.1-13.3)
== END 2024-03-10 15:26 | disposition home or self-care (01) ==
LOC: HO.LAB 15:25
PROVIDERS: PCP Internal Medicine; Visit Provider Internal Medicine
DX: S80.10XA Contusion of unspecified lower leg, initial encounter (principal)
CPT/HCPCS: 36415; 80053; 84439; 84443; 85025; 85610

== ENCOUNTER 2024-06-03 10:57 | Outpatient (AMB) | payer OTHER, SELFPAY ==
[2024-06-03 11:00] VITALS: BP 144/110; PULSE 79; O2SAT 98; BMI 46.6
--- NOTE | 2024-06-03 11:00 | A.OFFPC_ITS ---
Vital Signs 06/03/24 11:00 Height 5 ft 2 in Weight 115.666 kg BMI 46.6 BP 144/110 H Blood Pressure Location Lt brachial Position Sitting Pulse 79 Pulse Source Pulse Oximeter Pulse Oximetry (%) 98 Oxygen Delivery Method Room Air Intake Visit Reasons: PE Allergies No Known Allergies [No Known Allergies*] Allergy (Verified 03/07/24 12:50) Medication List - Last Reconciled 06/03/24 by Raven Parham MD cholecalciferol (vitamin D3) 50 mcg PO DAILY 90 days lisinopril-hydrochlorothiazide 10-12.5 mg 1 tab PO DAILY Tobacco use date assessed: 09/26/23 Dental Screening Dental Screen Date: 06/03/24 Did you have a dental visit in the last 12 months?: No Did you have a dental problem in the last 6 months where you did not have access to dental care?: No Was dental information given to patient?: No HPI PE HPI Details 44-year-old morbidly obese female smoker with impaired glucose tolerance hypercholesterolemia GERD [facility] Patient's mammogram is up-to-date 09/11/2023 reminded about cervical cancer screening. BP high today but has been good before , will monitor for now, sick 4 days , had fevers, covid negative, cough, mild productive, no sob. coughing more at night PFSH Medical History Vitamin D deficiency Breast cancer screening by mammogram Asthma Infected sebaceous cyst Swelling of right index finger Hand swelling UTI (urinary tract infection) Cellulitis of eyebrow Plantar fasciitis Tinea pedis of both feet Cervical cancer screening Hematuria Annual physical exam Vision changes Depression History of renal calculi Surgical History Hx of tubal ligation H/O section Family History Father Heart failure Myocardial infarct Mother Diabetes Maternal Uncle Alcohol abuse Other Mental health disorder Social History (Updated 06/03/24 @ 11:30 by Raven Parham MD) Housing: House Alcohol intake: current Alcohol intake frequency: a few times a month Comment: 2x a month 5 -6 beers Patient Tobacco Use Status: Current everyday Tobacco user Tobacco use type: Cigarette Cigarettes Per Day: 5 Years Smoked: 16 years old from a pack a day till 12/2023 now 2-3 a day e-Cigarette/Vaping Use: Never Used Second Hand Smoke Exposure: No Current occupational status: employed Cognitive needs: No Hearing needs: No Vision needs: No Female Reproductive History Menstrual Age of Menarche: 10 Questionnaire PHQ-9 Over the last 2 weeks, how often have you been bothered by any of the following problems? 1. Little interest or pleasure in doing things: not at all 2. Feeling down, depressed, or hopeless: not at all 3. Trouble falling or staying asleep, or sleeping too much: not at all 4. Feeling tired or having little energy: not at all 5. Poor appetite or overeating: not at all 6. Feeling bad about yourself - or that you are a failure or have let yourself or your family down: not at all 7. Trouble concentrating on things, such as reading the newspaper or watching television: not at all 8. Moving or speaking so slowly that other people could have noticed. Or the opposite - being so fidgety or restless that you have been moving around a lot more than usual: not at all 9. Thoughts that you would be better off or of hurting yourself in some way: not at all Total score: 0 Depression Screening Interpretation: Negative Depression Screening Done: Yes 66503 - PHQ-9 Billing: Yes Source: Developed by Drs. Lenin Centeno, Juju Keller, Germain Dominguez and colleagues, with an educational andree from [employer]. Thrive Questionnaire Date Thrive assessed: 09/26/23 I am a: Patient What is your living situation today?: I choose not to answer this question Within the past 12 months, did the food you bought not last and you didn't have the money to get more?: I choose not to answer this question Within the past 12 months, did you worry whether your food would run out before you got money to buy more?: I choose not to answer this question Do you have trouble paying for medicines?: No Do you have trouble getting transportation to medical appointments?: No Do you have trouble paying your heating and electricity bill?: No Do you have trouble taking care of your child, family member or friend?: No Do you have trouble with day-to-day activities such as bathing, preparing meals, shopping, managing finances, etc.?: No Are you currently unemployed and looking for a job?: No Are you interested in more education?: No Please select the resources that you would like help with: None Currently or been in a relationship where the following occur: I choose not to answer THRIVE Score: 0 AUDIT C Alcohol Use Questionnaire (AUDIT-C) 1. How often do you have a drink containing alcohol?: 2-4 times a month 2. How many drinks containing alcohol do you have on a typical day when you are drinking?: 1 or 2 3. How often do you have six or more drinks on one occasion?: Never Total Score: 2 LELAND-7 AMB Questionnaire LELAND-7 Date LELAND - 7 assessed: 06/03/24 Feeling nervous, anxious, or on edge: 0 = Not at all Not being able to stop or control worryin = Not at all Worrying too much about different things: 0 = Not at all Trouble relaxin = Not at all Being so restless that it is hard to sit still: 0 = Not at all Becoming easily annoyed or irritable: 0 = Not at all Feeling afraid as if something awful might happen: 0 = Not at all Total LELAND-7 score (0-4 normal; 5-9 mild; 10-14 moderate; 15-21 severe): 0 Source: Developed by Drs. Lenin Centeno, Juju Keller, Germain Dominguez and colleagues, with an educational andree from [employer]. LELAND-7 Assessment Billing LELAND-7 Assessment Tool: LELAND-7 Assessment 54986 Review of Systems Const Denies poor appetite and Denies weakness Eyes Denies no additional complaints ENT Reports Normal hearing present, Denies dizziness, Denies nasal congestion, Denies tinnitus and Denies sore throat Card Denies chest pain, Denies syncope, Denies rapid heart rate and Denies dyspnea Resp Denies cough and Denies dyspnea GI Denies change in stool character, Reports constipation, Denies diarrhea, Denies nausea and Denies vomiting Denies urinary frequency, Denies difficulty voiding and Denies dysuria Neuro Reports Normal hearing present, Denies confusion, Denies dizziness, Denies syncope and Denies weakness Psych Denies confusion Physical exam (Primary Care) Vital Signs: Last Vital Signs Pulse 79 06/03/24 11:00 BP 144/110 H 06/03/24 11:00 Pulse Ox 98 06/03/24 11:00 Oxygen Delivery Method Room Air 06/03/24 11:00 BMI result Body Mass Index 46.6 Tobacco/Smoking Status: Tobacco use Status Tobacco use date assessed 09/26/23 06/03/24 11:02 Patient Tobacco Use Status Current everyday Tobacco 06/03/24 11:30 Tobacco use type Cigarette 06/03/24 11:30 e-Cigarette/Vaping Use Never Used 06/03/24 11:30 PHQ-9: PHQ-9 Score PHQ-9: Total score 0 06/03/24 11:23 Depression Screening Interpretation: Negative Thrive Assessment: Date of Thrive Assessment Date Thrive assessed 09/26/23 06/03/24 11:02 Currently or been in a relationship where the following occur: I choose not to answer Const General: No confusion Orientation/consciousness: No confusion HENMT Head: Yes normocephalic Ears: external ears normal and TM's normal bilaterally Face and sinus: Yes normal facial exam Mouth: moist mucous membranes Throat: Yes tonsils normal Eyes Conjunctivae: conjunctivae normal Pupils: Equal, round and reactive pupils present and Pupil accommodation reflex normal Direct Ophthalmoscopy: normal light reflex Neck Neck: No lymphadenopathy Thyroid: Thyroid normal Chest Chest palpation & inspection: normal inspection of the chest Resp Effort & Inspection: normal respiratory effort and no audible wheezes Auscultation: clear to auscultation bilaterally, no crackles, no wheezes and lung sounds not diminished Cardio Rate: regular rate Rhythm: regular rhythm Peripheral pulses: radial pulses present and dorsalis pedis present GI Palpation (GI): no masses Auscultation: normal bowel sounds and normoactive bowel sounds Rectal Exam - Female: deferred Skin General skin exam: no rashes or lesions noted Rashes: no rashes Neuro General: No confusion Cranial nerves: Yes Equal, round and reactive pupils present and Yes Normal hearing present Cognition (Neuro): normal cognition Gait exam (Neuro): Normal gait present Motor exam (neuro): 5/5 motor strength present throughout Deep tendon reflexes (DTR's): Right brachioradialis reflex intensity grade: 2+, Left brachioradialis reflex intensity grade: 2+, Right patellar reflex intensity grade: 2+ and Left patellar reflex intensity grade: 2+ Extrem General: No edema Immunizations pneumoc 20-rosie conj-dip cr(PF) 0.5 mL IM syringe Performing Provider: Raven Parham MD [facility] Administered by: Ambar Haddad CMA on 06/03/24 12:04 Dose Route Admin Location Dispensed Lot Number Expiration Date NDC Straightener Hand 0.5 mL IM Left Deltoid 0.5 mL [id number] 06/22/25 [employer] VIS Given Date VIS Provided VIS Publication Date 06/03/24 Single Vaccine 21 Eligibility Eligibility Date Funding Source Not [facility] Eligible 06/03/24 Private Coding Level of Care Code Est Pt Prev Care 40-64y(15117) Diagnoses Annual physical exam Z00.00 Morbid obesity E66.01 Tobacco abuse Z72.0 Impaired glucose tolerance R73.02 Hypercholesterolemia E78.00 Gastroesophageal reflux disease without esophagitis K21.9 Esophagitis presence: without esophagitis Primary hypertension I10 Hypertension type: primary hypertension Cervical cancer screening Z12.4 Additional Codes LELAND-7 Assessment Billing - LELAND-7 Assessment Tool: LELAND-7 Assessment 98081 ([id number]) PHQ-9 - 66922 - PHQ-9 Billing: Yes ([id number]) Assessment & Plan Assessment & Plan (1) Annual physical exam: Code(s): Z00.00 - Encounter for general adult medical examination without abnormal findings Category: Medical Plan: Patient is advised to eat healthy, keep well hydrated, keep active and have adequate sleep. (2) Morbid obesity: Code(s): E66.01 - Morbid (severe) obesity due to excess calories Category: Medical Plan: Diet and exercise (3) Tobacco abuse: Comment: Patient has embarked on trying to cut way back and will be working on quitting. Code(s): Z72.0 - Tobacco use Category: Medical Plan: Patient is strongly advised to stop smoking (4) Impaired glucose tolerance: Code(s): R73.02 - Impaired glucose tolerance (oral) Category: Medical Plan: Decrease the amount of carbohydrate intake, pasta, bread, rice and potatoes are all sugar and that is aside from all the sweet stuff, remember that fruits are good but they are Sweet also. (5) Hypercholesterolemia: Code(s): E78.00 - Pure hypercholesterolemia, unspecified Category: Medical Plan: Avoid fried foods, chicken skin, eggs, butter margarine, pastries and meat. Be it pork or beef they have a lot of cholesterol LDL goal of less than 130 and triglyceride of less than 150. Last blood work was August 2023 (6) GERD (gastroesophageal reflux disease): Code(s): K21.9 - Gastro-esophageal reflux disease without esophagitis Category: Medical Qualifiers: Esophagitis presence: without esophagitis Qualified Code(s): K21.9 - Gastro-esophageal reflux disease without esophagitis Plan: Avoid the foods that causes that usually spicy foods, tomato products, juices, coffee, soda and foods that your sensitive to. After eating do not lie down, allow 3-4 hours before in lie down. And keep the head of bed above 30 degrees to avoid the acid from going up. (7) Hypertension: Code(s): I10 - Essential (primary) hypertension Category: Medical Qualifiers: Hypertension type: primary hypertension Qualified Code(s): I10 - Essential (primary) hypertension Plan: Continue with blood pressure medication. Decrease salt intake and exercise patient takes lisinopril hydrochlorothiazide (8) Cervical cancer screening: Comment: Patient states she gets all her Paps with her primary care provider Dr. Parham Code(s): Z12.4 - Encounter for screening for malignant neoplasm of cervix Category: Medical Plan: Last Pap smear was 06/11/2021 Orders: Orders Hemoglobin A1c 3 Months I10 - Essential (primary) hypertension Free T4 (Free Thyroxine) 3 Months I10 - Essential (primary) hypertension Thyroid Stimulating Hormone 3 Months I10 - Essential (primary) hypertension Vitamin D 25-OH Total 3 Months I10 - Essential (primary) hypertension Complete Blood Count Auto Diff 3 Months I10 - Essential (primary) hypertension Comprehensive Met. Panel 3 Months I10 - Essential (primary) hypertension Vitamin B12 and Folate 3 Months I10 - Essential (primary) hypertension Lipid Panel 3 Months E78.00 - Pure hypercholesterolemia, unspecified, I10 - Essential (primary) hypertension Pneumococcal 20 Immunization Today Z23 - Encounter for immunization Medications: New tirzepatide (weight loss) (Zepbound) for 4 weeks 2.5 mg (0.5 mL) subcut QWEEK 2 mL 1RF E66.01 - Morbid (severe) obesity due to excess calories pneumoc 20-rosie conj-dip cr(PF) 0.5 mL IM ONCE 0.5 mL 0RF Z23 - Encounter for immunization
== END 2024-06-03 12:09 | disposition home or self-care (01) ==
PROVIDERS: PCP Internal Medicine; Visit Provider Internal Medicine
DX: Z00.00 Encounter for general adult medical examination without abnormal findings (principal); E66.01 Morbid (severe) obesity due to excess calories; Z68.42 Body mass index [BMI] 45.0-49.9, adult; Z72.0 Tobacco use; R73.02 Impaired glucose tolerance (oral); E78.00 Pure hypercholesterolemia, unspecified; K21.9 Gastro-esophageal reflux disease without esophagitis; I10 Essential (primary) hypertension; Z23 Encounter for immunization

== ENCOUNTER → 2024-06-03 10:57 | Outpatient (BNVA) | payer OTHER, SELFPAY | PROVIDERS: PCP Internal Medicine; Visit Provider Internal Medicine | DX: Z00.00 Encounter for general adult medical examination without abnormal findings (principal); Z23 Encounter for immunization; E66.01 Morbid (severe) obesity due to excess calories; R73.02 Impaired glucose tolerance (oral); E78.00 Pure hypercholesterolemia, unspecified; K21.9 Gastro-esophageal reflux disease without esophagitis; I10 Essential (primary) hypertension; Z72.0 Tobacco use | CPT/HCPCS: 90471; 90677; 96127; 99396 ==

== ENCOUNTER 2024-09-17 09:07 | Outpatient (REF) | payer OTHER, SELFPAY | END 2024-09-17 09:08 | disposition home or self-care (01) | LOC: HO.MAMMO 09:07 | PROVIDERS: PCP Internal Medicine; Visit Provider Internal Medicine | DX: Z12.31 Encounter for screening mammogram for malignant neoplasm of breast (principal) | CPT/HCPCS: 77063; 77067 ==

== ENCOUNTER → 2024-09-17 09:15 | Outpatient (BNV) | payer OTHER, SELFPAY | PROVIDERS: PCP Internal Medicine; Visit Provider Internal Medicine | DX: Z12.31 Encounter for screening mammogram for malignant neoplasm of breast (principal) | CPT/HCPCS: 77063; 77067 ==

== ENCOUNTER 2025-03-04 10:21 | Outpatient (AMB) | payer OTHER, SELFPAY ==
[2025-03-04 10:56] VITALS: BP 136/100; PULSE 82; TEMP 36.7; O2SAT 98; BMI 42.1
--- NOTE | 2025-03-04 10:56 | AM.OFFWIN_ITS ---
Intake Vital Signs 03/04/25 10:56 Height 5 ft 2 in Weight 230 lb BMI 42.1 BP 136/100 H Blood Pressure Location Lt brachial Position Sitting Pulse 82 Pulse Source Pulse Oximeter Temp 98.0 F Temp Source Oral Pulse Oximetry (%) 98 Oxygen Delivery Method Room Air Intake Visit Reasons: EP-rt eye swollen, itchy & pain Intake Note: presents with right eye redness, weeping, pain, itchy and swelling Patient Tobacco Use Status: Current everyday Tobacco user Allergies No Known Allergies (No Known Allergies*) Allergy (Verified 03/04/25 11:01) Do you need a note to return to daycare/school/sports/work: Yes HPI HPI Comments History of Present Illness Details History of Present Illness - The patient is a 44-year-old female pr esenting with burning, itching, and yellow/green discharge in the right eye that started this AM. - Significant swelling noted in the righ t eye, with a sensation of a foreign body, although none is visible. - The patient's son had conjunctivitis l ast week, with similar symptoms, which resolved with erythromycin ointment. - The patient lacks an established eye d octor and has faced challenges in obtaining an appointment. - Does not wear contacts Physical Exam General: Cooperative, healthy appearing, comfortable, no acute distress and well developed Orientation: Patient oriented x3 Limitations: No limitations Head: Normal to inspection Ears: Hearing grossly normal bilaterally Nose: Normal External nose present Face and sinus: Normal facial exam Eyes: right eye with slight edema in inner canthus, injection, watery discharge, no FB noted. PERRLA bilaterally Neck: Normal visual inspection and Yes full ROM Respiratory: Normal respiratory effort and able to speak in complete sentences. Skin: No rashes or lesions noted Neuro: Patient oriented x3 Extremities: Normal to inspection [facility] Medical History Vitamin D deficiency Breast cancer screening by mammogram Asthma Infected sebaceous cyst Swelling of right index finger Hand swelling UTI (urinary tract infection) Cellulitis of eyebrow Plantar fasciitis Tinea pedis of both feet Cervical cancer screening Hematuria Annual physical exam Vision changes Depression History of renal calculi Surgical History Hx of tubal ligation H/O section Family History Father Heart failure Myocardial infarct Mother Diabetes Maternal Uncle Alcohol abuse Other Mental health disorder Social History (Updated 06/03/24 @ 11:30 by Raven Parham MD) Housing: House Alcohol intake: current Alcohol intake frequency: a few times a month Comment: 2x a month 5 -6 beers Patient Tobacco Use Status: Current everyday Tobacco user Tobacco use type: Cigarette Cigarettes Per Day: 5 Years Smoked: 16 years old from a pack a day till 12/2023 now 2-3 a day e-Cigarette/Vaping Use: Never Used Second Hand Smoke Exposure: No Current occupational status: employed Cognitive needs: No Hearing needs: No Vision needs: No Female Reproductive History Menstrual Age of Menarche: 10 Review of Systems Const All systems reviewed & are unremarkable except as noted in HPI and below Physical Exam Vital Signs: Last Vital Signs Temp 98.0 F 03/04/25 10:56 Pulse 82 03/04/25 10:56 BP 136/100 H 03/04/25 10:56 Pulse Ox 98 03/04/25 10:56 Oxygen Delivery Method Room Air 03/04/25 10:56 BMI result Body Mass Index 42.1 Assessment & Plan Assessment & Plan (1) Bacterial conjunctivitis of right eye: Code(s): H10.9 - Unspecified conjunctivitis Plan: Plan - Start erythromycin ophthalmic ointment, apply four times daily while awake. - Monitor symptoms, seek emergency care if vision changes or pain worsens. - Provide work excuse for two days, extendable to three days if needed. - Follow-up with an blow molding machine tender or ED if no improvement in 48 to 72 hours or if pain or vision changes occur. Patient was informed and verbally consented to the use of an ambient scribe for clinic note documentation during this visit. Medications: New erythromycin Apply to left eye 4 times a day while awake 0.5 inches ophthalmic (eye) QID 3.5 grams 0RF Coding Level of Care Code Est Pt Level 3 (90066) Diagnoses Bacterial conjunctivitis of right eye H10.9
--- OUTSIDE RECORDS SUMMARY | 2025-03-04 11:05 | XMS_ITS | Patient Health Record ---
Author Organization [facility] Address [address] [place] [id number] Care Team Providers Care Fiscal Agent Name Role Phone Lenin Mariee Unavailable [phone] Reason For Referral No Information Plan Of Treatment No Information
== END 2025-03-04 11:30 | disposition home or self-care (01) ==
PROVIDERS: PCP Internal Medicine; Visit Provider Physician Assistant
DX: H10.9 Unspecified conjunctivitis (principal)

== ENCOUNTER → 2025-03-04 10:21 | Outpatient (BNVA) | payer OTHER, SELFPAY | PROVIDERS: PCP Internal Medicine; Visit Provider Physician Assistant | DX: H10.9 Unspecified conjunctivitis (principal) | CPT/HCPCS: 99212 ==

== ENCOUNTER 2025-03-06 10:34 | Outpatient (AMB) | payer OTHER, SELFPAY ==
--- OUTSIDE RECORDS SUMMARY | 2025-03-06 10:39 | XMS_ITS | Patient Health Record ---
Author Organization [facility] Address [address] [place] [id number] Care Team Providers Care End Stapler Name Role Phone Lenin Mariee Unavailable [phone] Reason For Referral No Information Plan Of Treatment No Information
[2025-03-06 11:19] VITALS: BP 132/90; PULSE 79; TEMP 36.8; O2SAT 98; BMI 41.9
--- NOTE | 2025-03-06 11:19 | AM.OFFWIN_ITS ---
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 - The swelling and pain are localized to a specific part of the eye and have been persistent despite treatment for 2 days with erythromycin ointment. - She was prescribed this med 2 days ago , her son had pink eye last week and her symptoms 2 days ago were consistent with pinkeye. - The patient reports no fever or change s in vision, although there is blurrin ess when the eye is closed and reopened which lasts for about 5 minutes. - The patient experiences significant di scomfort when lying on her face due to the pain in the eye. Physical Exam General: Cooperative, healthy appearing, comfortable, no acute distress and well developed Orientation: Patient oriented x3 Limitations: No limitations Head: Normal to inspection Ears: Hearing grossly normal bilaterally Nose: Normal External nose present Face and sinus: Normal facial exam Eyes: right eye with stye on upper lateral eyelid, ttp lateral right eye, right eye is injected with significant edema, erythema inferior right eye. left eye is normal Neck: Normal visual inspection and Yes full ROM Respiratory: Normal respiratory effort and able to speak in complete sentences. Skin: No rashes or lesions noted Neuro: Patient oriented x3 Extremities: Normal to inspection [facility] Medical History Vitamin D deficiency Breast cancer screening by mammogram Asthma Infected sebaceous cyst Swelling of right index finger Hand swelling UTI (urinary tract infection) Cellulitis of eyebrow Plantar fasciitis Tinea pedis of both feet Cervical cancer screening Hematuria Annual physical exam Vision changes Depression History of renal calculi Surgical History Hx of tubal ligation H/O section Family History Father Heart failure Myocardial infarct Mother Diabetes Maternal Uncle Alcohol abuse Other Mental health disorder Social History (Updated 06/03/24 @ 11:30 by Raven Parham MD) Housing: House Alcohol intake: current Alcohol intake frequency: a few times a month Comment: 2x a month 5 -6 beers Patient Tobacco Use Status: Current everyday Tobacco user Tobacco use type: Cigarette Cigarettes Per Day: 5 Years Smoked: 16 years old from a pack a day till 12/2023 now 2-3 a day e-Cigarette/Vaping Use: Never Used Second Hand Smoke Exposure: No Patient : No Current occupational status: employed Cognitive needs: No Hearing needs: No Vision needs: No Female Reproductive History Menstrual Age of Menarche: 10 Date of last menstrual period: 02/01/25 Review of Systems Const All systems reviewed & are unremarkable except as noted in HPI and below Physical Exam Vital Signs: Last Vital Signs Temp 98.3 F 03/06/25 11:19 Pulse 79 03/06/25 11:19 BP 132/90 H 03/06/25 11:19 Pulse Ox 98 03/06/25 11:19 Oxygen Delivery Method Room Air 03/06/25 11:19 BMI result Body Mass Index 41.9 Assessment & Plan Assessment & Plan (1) Acute right eye pain: Code(s): H57.11 - Ocular pain, right eye Plan: Plan - Referral to ophthalmology for further evaluation and management of eyelid swelling and pain. I was able to get her an appointment for today at 2:00pm at [facility] in [place]. They do take her insurance and patient was given all the information and told to go there for 1:45pm today. Patient understands and agrees with plan. Patient was informed and verbally consented to the use of an ambient scribe for clinic note documentation during this visit. Coding Level of Care Code Est Pt Level 3 (76329) Diagnoses Acute right eye pain H57.11
== END 2025-03-06 12:32 | disposition home or self-care (01) ==
PROVIDERS: PCP Internal Medicine; Visit Provider Physician Assistant
DX: H57.11 Ocular pain, right eye (principal)

== ENCOUNTER → 2025-03-06 10:34 | Outpatient (BNVA) | payer OTHER, SELFPAY | PROVIDERS: PCP Internal Medicine; Visit Provider Physician Assistant | DX: H57.11 Ocular pain, right eye (principal) | CPT/HCPCS: 99212 ==

== ENCOUNTER 2025-03-15 13:43 | Emergency (ER) | payer OTHER, SELFPAY ==
[2025-03-15 14:09] VITALS: BP 191/86; PULSE 87; RESP 16; TEMP 36.3; O2SAT 99; BMI 41.3
--- NOTE | 2025-03-15 14:15 | ED_ITS ---
HPI - General Adult General Chief complaint: Eye Problems Stated complaint: both eye swelling Time Seen by Provider: 03/15/25 16:00 Source: patient Mode of arrival: ambulatory Limitations: no limitations History of Present Illness ED Provider: RAISA Winston HPI narrative: This is a 44-year-old female presenting with bilateral reports she was diagnosed with pinkeye on 03/04/2025 she was ?cream? and she has use eyedrops with little to no relief. Reports she saw they seeing eye dog teacher last Sunday who told her she would be fine and didnt need follow up. She reports pain to bilateral eyes, swelling and constant discomfort its improving but not as fast as she would of thought. She denies pain with eye movements, fevers, chills, chest pain, shortness breath, cough, rhinorrhea, headache, vision changes, dizziness, weakness, nausea, vomiting, abdominal pain. No concerns for STDs Related Data Previous Rx's ?Medication ?Instructions ?Recorded cholecalciferol (vitamin D3) 50 50 mcg PO DAILY 90 day s #90 caps 09/26/23 mcg (2,000 unit) capsule lisinopril 10 1 tab PO DAILY #30 tabs 03/0 01/13 mg-hydrochlorothiazide 12.5 mg tablet erythromycin 5 mg/gram (0.5 %) eye 0.5 inch ophthalmic (eye) QID #3.5 03/04/25 ointment grams loratadine 10 mg capsule 10 mg PO DAILY #30 caps 02/21 11/14 Allergies Allergy/AdvReac Type Severity Reaction Status Date / Time No Known Allergies (No Known Allergy Verified 03/15/25 14:09 Allergies*) Review of Systems 2 Review of Systems: Yes all other systems are reviewed and are negative [facility] Past Medical History Attestation statement: The following information was validated with the patient. Source: old records reviewed and nursing notes reviewed Medical History Vitamin D deficiency Breast cancer screening by mammogram Asthma Infected sebaceous cyst Swelling of right index finger Hand swelling UTI (urinary tract infection) Cellulitis of eyebrow Plantar fasciitis Tinea pedis of both feet Cervical cancer screening Hematuria Annual physical exam Vision changes Depression History of renal calculi Surgical History Hx of tubal ligation H/O section Family History Family History Father Heart failure Myocardial infarct Mother Diabetes Maternal Uncle Alcohol abuse Other Mental health disorder Social History Social History (Updated 06/03/24 @ 11:30 by Raven Parham MD) Housing: House Alcohol intake: current Alcohol intake frequency: a few times a month Comment: 2x a month 5 -6 beers Patient Tobacco Use Status: Current everyday Tobacco user Tobacco use type: Cigarette Cigarettes Per Day: 5 Years Smoked: 16 years old from a pack a day till 12/2023 now 2-3 a day e-Cigarette/Vaping Use: Never Used Second Hand Smoke Exposure: No Advance Directives: No Advance Directives Information Provided: No Do you have a plan to hurt others: No Plan Current occupational status: employed Cognitive needs: No Hearing needs: No Vision needs: No Physical Exam ED Exam Exam: Appearance: Alert.? Oriented X3.? No acute distress.? Head: Normocephalic, atraumatic, no step-offs or deformities Eyes: Pupils equal, round and reactive to light.? ENT: Pharynx normal.? Neck: Normal inspection.? Neck supple.? CVS: Normal heart rate and rhythm.? Pulses normal.? Respiratory: No respiratory distress.? Breath sounds normal.? Abdomen: Soft and nontender.? Skin: Skin warm and dry.? Normal skin color.? Normal skin turgor.? Extremities: No lower extremity edema.? No calf ttp. 5/5 strength to bilateral upper and lower extremities Back: No midline tenderness, no C-spine tenderness, full range of motion, no CVA tenderness bilaterally Neuro: Oriented X 3.? No motor deficit.? No sensory deficit. CN 2-12 intact Vital Signs: Vital Signs - 24 hr 03/15/25 14:09 Temperature 97.4 F Pulse Rate 87 Respiratory Rate 16 Blood Pressure 191/86 H Pulse Oximetry 99 Oxygen Delivery Method Room Air BMI result Body Mass Index 41.3 Vital signs stable Course Course Course Narrative: RME, this is a rapid medical exam performed by Andrea Mooney please refer to primary provider for complete H&P- 44-year-old female presents for evaluation of itching, burning eyes. She reports she was diagnosed with pinkeye on 03/04/2025. She has been on drops and a cream, she has followed up with an seeing eye dog teacher and reports her symptoms are improving but not as quickly as she would like. Plan for eye examination Reevaluation(s) Reevaluation #1: Fluorescein stain unremarkable no uptake. Negative Manuela sign. I also spoke to patient and mentioned that these could be seasonal allergies. She is agreeable to trying something for seasonal allergies. Time: 16:56 Reevaluation #2: CBC unremarkable. Chemistry unremarkable very mild elevation in CRP 0.81 nonspecific. Patient declines large volume is eye discharge unlikely gonococcal conjunctivitis or Petty syndrome. Will discharge patient with Ophthalmology follow-up. Will also send loratadine in case this is allergy related Time: 17:10 Medical Decision Making Medical Decision Making [facility] Narrative: 44-year-old female presents with bilateral eye redness ongoing for the past week and a half. Patient has tried antibiotic eyedrops as well as creams. Has been seen by a specialist who prescribed her medication and told her she would be fine afterwards. Denies pain with eye movement Physical exam very mild conjunctival injection bilaterally. Extraocular movements intact and pain-free. No orbital erythema or edema noted This is likely conjunctivitis in the process of improving. I do not suspect preseptal or septal cellulitis. Unlikely glaucoma or closed angle glaucoma no signs of wet macular degeneration. Plan labs, visual acuity and fluorescein stain Differential Diagnosis Differential Diagnoses: The differential diagnosis associated with the presentation includes (This is likely conjunctivitis in the process of improving. I do not suspect preseptal or septal cellulitis. Unlikely glaucoma or closed angle glaucoma no signs of wet macular degeneration.) Admission/Observation Consideration of admission/observation: Escalation of care including admission/observation considered Lab Data [facility] Lab Attestation statement: I reviewed the patient's lab results. 03/15/25 16:47 03/15/25 16:47 Labs: Lab Results 03/15/25 Range/Units 16:47 WBC 8.4 (4.8-10.8) X10*3/uL RBC 5.13 (4.20-5.50) X10*6/uL Hgb 13.4 (12.0-16.0) g/dl Hct 41.3 (37.0-47.0) % MCV 80.5 (80.0-98.0) fL MCH 26.1 L (27.0-33.0) pg MCHC 32.4 (31.0-35.0) g/dl RDW 16.0 (11.0-16.0) % Plt Count 327 (160-400) X10*3/uL MPV 10.3 (9.4-12.3) fL Immature Gran % (Auto) 0.4 (0.0-0.4) % Neut % (Auto) 60.5 (45-73) % Lymph % (Auto) 29.2 (20-40) % Rutherford % (Auto) 7.0 (2-11) % Eos % (Auto) 2.4 (0-4) % Baso % (Auto) 0.5 (0-2) % Lymph # (Auto) 2.5 (1.2-4.9) X10*3/uL Rutherford # (Auto) 0.6 (0.1-1.2) X10*3/uL Eos # (Auto) 0.2 (0.0-0.4) X10*3/uL Baso # (Auto) 0.0 (0.0-0.2) X10*3/uL Abs Immat Gran (auto) 0.03 (0.00-0.03) X10*3/uL Absolute Neuts (auto) 5.1 (2.0-8.3) x10*3/uL Absolute Nucleated RBC 0.000 (0.0-0.012) X10*3/uL Nucleated RBC % (auto) 0.0 (0.0-0.2) /100WBC Sodium 138 (135-145) mmol/L Potassium 4.5 D (3.3-5.1) mmol/L Chloride 106 (96-108) mmol/L Carbon Dioxide 22 (22-29) mmol/L Anion Gap 15 (12-20) BUN 6 L (9-16) mg/dL Creatinine 0.67 (0.5-1.4) mg/dL Estim Creat Clear Calc 120.2 Estimated GFR > 60 Random Glucose 91 (60-115) mg/dL Calcium 9.2 (8.4-10.2) mg/dL Total Bilirubin 0.4 (0.0-1.0) mg/dL AST 30 (5-31) U/L ALT 18 (0-31) U/L Alkaline Phosphatase 93 (39-117) U/L C-Reactive Protein 0.81 H (< or = 0.50) mg/dL Total Protein 7.4 (6.5-8.0) g/dL Albumin 3.9 (3.5-5.0) g/dL Critical Care Time Critical Care Time Critical Care Time: No Discharge Plan Discharge Clinical Impression: Conjunctivitis Patient Disposition: Home, Self-Care Instructions: Conjunctivitis (ED) Additional Instructions: Take your medications as prescribed. If you were prescribed antibiotics today, it is important that you take your medication to their entirety, do not skip any doses, do not finish them early. Follow-up with your primary care provider this week. Return to the emergency department with new or worsening symptoms. Such as fevers, chills, chest pain, shortness of breath, nausea, vomiting, dizziness, headache, vision changes, lethargy In case of emergency call 911 Continue the antibiotics that were prescribed to by the eye doctor in please follow-up with them within the next few days Prescriptions: New loratadine 10 mg capsule 10 mg PO DAILY Qty: 30 0RF No Action lisinopril-hydrochlorothiazide 10-12.5 mg tablet 1 tab PO DAILY Qty: 30 5RF cholecalciferol (vitamin D3) 50 mcg (2,000 unit) capsule 50 mcg PO DAILY 90 Days Qty: 90 3RF erythromycin 5 mg/gram (0.5 %) ointment 0.5 inch ophthalmic (eye) QID Qty: 3.5 0RF Rx Instructions: Apply to left eye 4 times a day while awake Referrals: Po,Raven Robles MD [Primary Care Provider, Internal Medicine] Print Language: Arabic
[2025-03-15 16:51] LABS: MANUAL DIFF FLAG NO
[2025-03-15 16:52] LABS: Hematocrit 41.3 % (37.0-47.0); Hemoglobin 13.4 g/dl (12.0-16.0); Imm Gran Abs Auto 0.03 X10*3/uL (0.00-0.03); Imm Gran Pct Auto 0.4 % (0.0-0.4); Lymphocytes Absolute Auto 2.5 X10*3/uL (1.2-4.9); Mean Corpuscular HGB Conc 32.4 g/dl (31.0-35.0); Mean Corpuscular Hemoglobin 26.1 pg (27.0-33.0); Mean Corpuscular Volume 80.5 fL (80.0-98.0); NRBC Abs Auto 0.000 X10*3/uL (0.0-0.012); NRBC Pct Auto 0.0 /100WBC (0.0-0.2); Platelet Count 327 X10*3/uL (160-400); Red Blood Count 5.13 X10*6/uL (4.20-5.50); White Blood Count 8.4 X10*3/uL (4.8-10.8)
[2025-03-15 17:06] LABS: Alanine Aminotransferase 18 U/L (0-31); Albumin Level 3.9 g/dL (3.5-5.0); Alkaline Phosphatase 93 U/L (39-117); Anion Gap 15 (12-20); Aspartate Amino Transferase 30 U/L (5-31); Blood Urea Nitrogen 6 mg/dL (9-16); Calcium 9.2 mg/dL (8.4-10.2); Carbon Dioxide 22 mmol/L (22-29); Chloride 106 mmol/L (96-108); Creatinine Clr Calc Pharmacy 120.2; Estimated Glomerular Filt Rate > 60; Potassium 4.5 mmol/L (3.3-5.1); Sodium 138 mmol/L (135-145); Total Protein 7.4 g/dL (6.5-8.0)
[2025-03-15] MEDS: Fluorescein Sodium STRIP 1 STRIP EYE-BOTH (17:37)
[2025-03-15 17:43] VITALS: BP 147/75; PULSE 92; RESP 18; TEMP 36.4; O2SAT 100
== END 2025-03-15 17:44 | disposition home or self-care (01) ==
PROVIDERS: Physician Assistant; Emergency Provider Emergency Medicine; PCP Internal Medicine
DX: H10.9 Unspecified conjunctivitis (principal)
CPT/HCPCS: 36415; 80053; 85025; 85652; 86140; 99282; 99283

== ENCOUNTER 2025-04-07 12:52 | Outpatient (REF) | payer OTHER, SELFPAY ==
[2025-04-08 16:01] LABS: Chlamydia pneumoniae PCR Not Detected (Not Detect.); Coronavirus 229E PCR Not Detected (Not Detect.); Coronavirus HKU1 PCR Not Detected (Not Detect.); Coronavirus NL63 PCR Not Detected (Not Detect.); Coronavirus OC43 PCR Not Detected (Not Detect.); RSV PCR Not Detected (Not Detect.); Rhino/Enterovirus PCR Detected (Not Detect.)
[2025-04-08 16:04] LABS: Influenza A H1 PCR Not Detected (Not Detect.); Influenza A H1-2009 PCR Not Detected (Not Detect.); Influenza A H3 PCR Not Detected (Not Detect.); SARS-CoV-2 PCR Not Detected (Not Detect.)
== END 2025-04-07 12:53 | disposition home or self-care (01) ==
LOC: HO.LNP 12:52
PROVIDERS: PCP Internal Medicine; Visit Provider Physician Assistant Medical
DX: J06.9 Acute upper respiratory infection, unspecified (principal)
CPT/HCPCS: 87633

== ENCOUNTER 2025-05-18 16:58 | Outpatient (AMB) | payer OTHER, SELFPAY ==
[2025-05-18 17:04] VITALS: BP 138/82; PULSE 88; O2SAT 98; BMI 41.7
--- NOTE | 2025-05-18 17:04 | MHC.PC.OV ---
Vital Signs 05/18/25 17:04 Height 5 ft 2 in Weight 228 lb BMI 41.7 BP 138/82 Blood Pressure Location Lt brachial Position Sitting Pulse 88 Pulse Source Pulse Oximeter Pulse Oximetry (%) 98 Oxygen Delivery Method Room Air Intake Visit Reasons: Weight Management Follow Up Allergies No Known Allergies (No Known Allergies*) Allergy (Verified 05/18/25 17:05) Medication List - Last Reconciled 05/18/25 by Raven Parham MD albuterol sulfate 90 mcg/actuation 2 puffs inhalation Q6H PRN benzonatate 100 mg PO bid-tid PRN 7 days cetirizine-pseudoephedrine 5-120 mg ER 1 tab PO BID 7 days cholecalciferol (vitamin D3) 50 mcg PO DAILY 90 days erythromycin 0.5 inches ophthalmic (eye) QID lisinopril-hydrochlorothiazide 10-12.5 mg 1 tab PO DAILY loratadine 10 mg PO DAILY Tobacco use date assessed: 05/18/25 Dental Screening Dental Screen Date: 05/18/25 Did you have a dental visit in the last 12 months?: Yes Did you have a dental problem in the last 6 months where you did not have access to dental care?: No Was dental information given to patient?: Patient has dentist HPI Weight Management Follow Up HPI Details 45-year-old morbidly obese female smoker with a history of impaired glucose tolerance hypercholesterolemia GERD hypertension coming in for follow-up last seen for physical in May 2024 patient's mammogram is up-to-date. Patient was recently in the walking in April 07. March 15 ER visit for conjunctivitis as for blood work no anemia PFSH Medical History Vitamin D deficiency Breast cancer screening by mammogram Asthma Infected sebaceous cyst Swelling of right index finger Hand swelling UTI (urinary tract infection) Cellulitis of eyebrow Plantar fasciitis Tinea pedis of both feet Cervical cancer screening Hematuria Annual physical exam Vision changes Depression History of renal calculi Surgical History Hx of tubal ligation H/O section Family History Father Heart failure Myocardial infarct Mother Diabetes Maternal Uncle Alcohol abuse Other Mental health disorder Social History (Updated 06/03/24 @ 11:30 by Raven Parham MD) Housing: House Alcohol intake: current Alcohol intake frequency: a few times a month Comment: 2x a month 5 -6 beers Patient Tobacco Use Status: Current everyday Tobacco user Tobacco use type: Cigarette Cigarettes Per Day: 5 Years Smoked: 16 years old from a pack a day till 12/2023 now 2-3 a day Packs per year/per ci.00 e-Cigarette/Vaping Use: Never Used Second Hand Smoke Exposure: No Current occupational status: employed Cognitive needs: No Hearing needs: No Vision needs: No Female Reproductive History Menstrual Age of Menarche: 10 Questionnaire PHQ-9 Over the last 2 weeks, how often have you been bothered by any of the following problems? 1. Little interest or pleasure in doing things: not at all 2. Feeling down, depressed, or hopeless: not at all 3. Trouble falling or staying asleep, or sleeping too much: not at all 4. Feeling tired or having little energy: not at all 5. Poor appetite or overeating: not at all 6. Feeling bad about yourself - or that you are a failure or have let yourself or your family down: not at all 7. Trouble concentrating on things, such as reading the newspaper or watching television: not at all 8. Moving or speaking so slowly that other people could have noticed. Or the opposite - being so fidgety or restless that you have been moving around a lot more than usual: not at all 9. Thoughts that you would be better off or of hurting yourself in some way: not at all Total score: 0 Depression Screening Interpretation: Negative Depression Screening Done: Yes Source: Developed by Drs. Lenin Centeno, Juju Keller, Germain Dominguez and colleagues, with an educational andree from [employer]. Thrive Questionnaire Date Thrive assessed: 05/11/25 I am a: Patient What is your living situation today?: I have a steady place to live Within the past 12 months, did the food you bought not last and you didn't have the money to get more?: Never true Within the past 12 months, did you worry whether your food would run out before you got money to buy more?: Never true Do you have trouble paying for medicines?: No Do you have trouble getting transportation to medical appointments?: No Do you have trouble paying your heating and electricity bill?: No Do you have trouble taking care of your child, family member or friend?: No Do you have trouble with day-to-day activities such as bathing, preparing meals, shopping, managing finances, etc.?: No Are you currently unemployed and looking for a job?: No Are you interested in more education?: No Please select the resources that you would like help with: None Currently or been in a relationship where the following occur: No concerns reported THRIVE Score: 0 AUDIT C Alcohol Use Questionnaire (AUDIT-C) 1. How often do you have a drink containing alcohol?: Monthly or less 2. How many drinks containing alcohol do you have on a typical day when you are drinking?: 1 or 2 3. How often do you have six or more drinks on one occasion?: Never Total Score: 1 LELAND-7 AMB Questionnaire LELAND-7 Date LELAND - 7 assessed: 05/18/25 Feeling nervous, anxious, or on edge: 0 = Not at all Not being able to stop or control worryin = Not at all Worrying too much about different things: 0 = Not at all Trouble relaxin = Not at all Being so restless that it is hard to sit still: 0 = Not at all Becoming easily annoyed or irritable: 0 = Not at all Feeling afraid as if something awful might happen: 0 = Not at all Total LELAND-7 score (0-4 normal; 5-9 mild; 10-14 moderate; 15-21 severe): 0 Source: Developed by Drs. Lenin Centeno, Juju Keller, Germain Dominguez and colleagues, with an educational andree from [employer]. Physical exam (Primary Care) Vital Signs: Last Vital Signs Pulse 88 05/18/25 17:04 BP 138/82 05/18/25 17:04 Pulse Ox 98 05/18/25 17:04 Oxygen Delivery Method Room Air 05/18/25 17:04 BMI result Body Mass Index 41.7 Tobacco/Smoking Status: Tobacco use Status Tobacco use date assessed 05/18/25 05/18/25 17:07 Patient Tobacco Use Status Current everyday Tobacco 05/18/25 17:07 Tobacco use type Cigarette 05/18/25 17:07 e-Cigarette/Vaping Use Never Used 05/18/25 17:07 PHQ-9: PHQ-9 Score PHQ-9: Total score 0 05/18/25 17:51 Depression Screening Interpretation: Negative Thrive Assessment: Date of Thrive Assessment Date Thrive assessed 05/11/25 05/18/25 17:07 Currently or been in a relationship where the following occur: No concerns reported Const General: alert; No acute distress Eyes Conjunctivae: conjunctivae normal Resp Auscultation: clear to auscultation bilaterally Cardio Rate: regular rate Rhythm: regular rhythm GI Inspection: Yes normal to inspection Extrem General: Yes normal to inspection and No edema Coding Level of Care Code Est Pt Level 4 (62701) Est Pt Prev Care >65y(07850) Diagnoses Morbid obesity E66.01 Primary hypertension I10 Hypertension type: primary hypertension Hypercholesterolemia E78.00 Gastroesophageal reflux disease without esophagitis K21.9 Esophagitis presence: without esophagitis Tobacco abuse Z72.0 Colon cancer screening Z12.11 Assessment & Plan Assessment & Plan (1) Morbid obesity: Code(s): E66.01 - Morbid (severe) obesity due to excess calories Category: Medical Plan: Diet and exercise (2) Hypertension: Code(s): I10 - Essential (primary) hypertension Category: Medical Qualifiers: Hypertension type: primary hypertension Qualified Code(s): I10 - Essential (primary) hypertension Plan: Continue with blood pressure medication. Decrease salt intake and exercise patient on lisinopril hydrochlorothiazide once a day (3) Hypercholesterolemia: Code(s): E78.00 - Pure hypercholesterolemia, unspecified Category: Medical Plan: Avoid fried foods, chicken skin, eggs, butter margarine, pastries and meat. Be it pork or beef they have a lot of cholesterol (4) GERD (gastroesophageal reflux disease): Code(s): K21.9 - Gastro-esophageal reflux disease without esophagitis Category: Medical Qualifiers: Esophagitis presence: without esophagitis Qualified Code(s): K21.9 - Gastro-esophageal reflux disease without esophagitis Plan: Avoid the foods that causes that usually spicy foods, tomato products, juices, coffee, soda and foods that your sensitive to. After eating do not lie down, allow 3-4 hours before in lie down. And keep the head of bed above 30 degrees to avoid the acid from going up. (5) Tobacco abuse: Comment: Patient has embarked on trying to cut way back and will be working on quitting. Code(s): Z72.0 - Tobacco use Category: Medical Plan: 5-7 cigarettes a day. Patient is strongly advised to stop smoking summation point (6) Colon cancer screening: Code(s): Z12.11 - Encounter for screening for malignant neoplasm of colon Category: Medical Plan: Patient is reminded about colon cancer screening Orders: Referrals Gastroenterology Referral Z12.11 - Encounter for screening for malignant neoplasm of colon Medications: New semaglutide (weight loss) (Wegovy) administer weeks 1 through 4 of therapy 0.25 mg (0.5 mL) subcut QWEEK 2 mL 3RF E66.01 - Morbid (severe) obesity due to excess calories
--- OUTSIDE RECORDS SUMMARY | 2025-05-18 19:24 | XMS_ITS | Patient Health Record ---
Author Organization [facility] Address 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
== END 2025-05-18 17:57 | disposition home or self-care (01) ==
LOC: HO.HMCH 16:59
PROVIDERS: PCP Internal Medicine; Visit Provider Internal Medicine
DX: I10 Essential (primary) hypertension (principal); E66.01 Morbid (severe) obesity due to excess calories; Z68.41 Body mass index [BMI] 40.0-44.9, adult; E78.00 Pure hypercholesterolemia, unspecified; K21.9 Gastro-esophageal reflux disease without esophagitis; Z72.0 Tobacco use; Z12.11 Encounter for screening for malignant neoplasm of colon

== ENCOUNTER → 2025-05-18 16:58 | Outpatient (BNVA) | payer OTHER, SELFPAY | PROVIDERS: PCP Internal Medicine; Visit Provider Internal Medicine | DX: E66.01 Morbid (severe) obesity due to excess calories (principal); F17.210 Nicotine dependence, cigarettes, uncomplicated; E78.00 Pure hypercholesterolemia, unspecified; K21.9 Gastro-esophageal reflux disease without esophagitis; I10 Essential (primary) hypertension; Z68.41 Body mass index [BMI] 40.0-44.9, adult | CPT/HCPCS: 99212 ==